=== PATIENT | male | born 1960 | race Caucasian/White ===

== ENCOUNTER 2019-01-07 17:18 | Emergency (ER) | payer MEDICAID ==
[2019-01-07 18:22] LABS: HEMOGLOBIN A1C 8.7 % (4.3-5.7)
[2019-01-07 18:34] LABS: CHLORIDE,CL 97 mmol/L (98-107); SODIUM,NA 132 mmol/L (136-145)
[2019-01-07] MEDS ORDERED: Sodium Chloride 0.9% 10 ML Syringe FLUSH PRN (18:37)
[2019-01-07] MEDS ORDERED: Furosemide 40 MG/4 ML VIAL IVPUSH ONE (18:38)
[2019-01-07] MEDS ORDERED: Albuterol/Ipratropium 3.0-0.5 MG/3 ML Neb Soln NEB ONE (18:39)
[2019-01-07] MEDS ORDERED: Bacitracin/Neomycin/Polymyxin B Oint 0.9 GM U/D Packet TOP ONE (19:20)
--- NOTE | 2019-01-07 19:23 | EDM.PDOC ---
ED HPI GENERAL MEDICAL PROBLEM - General Chief Complaint: Respiratory Problem Stated Complaint: shortness of breath Time Seen by Provider: 01/07/19 17:20 Source of Information: Reports: Patient, Family History Limitations: Reports: No Limitations - History of Present Illness INITIAL COMMENTS - FREE TEXT/NARRATIVE: Patient is a 58-year-old who was brought in by his with history of afibrillation not feeling his usual self no fever no coughing also stated afterwards that he had an infected left index finger. At this time patient was worked up history of atrial fibrillation diabetes type 2 Onset: Gradual Duration: Week(s): (2 weeks), Getting Worse Location: Reports: Chest (Shortness of breath retaining fluids) Severity: Moderate Improves with: Reports: None Worsens with: Reports: Rest Context: Reports: Other (Pneumonia) - Related Data Allergies Allergy/AdvReac Type Severity Reaction Status Date / Time No Known Allergies Allergy Verified 11/17/18 07:12 Home Meds: Home Meds Albuterol Sulfate [Proair Hfa] 8.5 gm IH DAILY 01/07/19 [History] Amoxicillin/Potassium Clav [Augmentin 875-125 Tablet] 1 each PO BID 10 Days #14 tablet 01/07/19 [Rx] Carvedilol 8 mg PO DAILY 01/07/19 [History] Carvedilol [Coreg] 6.25 mg PO DAILY 01/07/19 [History] Diltiazem HCl [Diltiazem ER] 240 mg PO DAILY 01/07/19 [History] Doxazosin Mesylate [Cardura] 8 mg PO DAILY 01/07/19 [History] Furosemide 40 mg PO BID 01/07/19 [History] Glimepiride [Amaryl] 6 mg PO DAILY 01/07/19 [History] Ipratropium/Albuterol Sulfate [Iprat-Albut 0.5-3(2.5) mg/3 ml] 3 ml IH ASDIRECTED 01/07/19 [History] Liraglutide [Victoza 3-Wero] 1.8 mg SUBCUT DAILY 01/07/19 [History] Omeprazole 20 mg PO DAILY 01/07/19 [History] Rivaroxaban [Xarelto] 20 mg pe PO DAILY 01/07/19 [History] Simvastatin [Zocor] 10 mg PO BEDTIME 01/07/19 [History] SitaGLIPtin [Januvia] 100 mg PO DAILY 01/07/19 [History] Spironolactone [Aldactone] 25 mg PO BID 01/07/19 [History] metFORMIN [Glucophage] 1,000 mg PO BIDMEALS 01/07/19 [History] Past Medical History Cardiovascular History: Reports: Afib, Hypertension, Syncope, Other (See Below) Other Cardiovascular History: cardioversion Respiratory History: Reports: None Musculoskeletal History: Reports: Back Pain, Chronic Psychiatric History: Reports: None Endocrine/Metabolic History: Reports: Diabetes, Type II, Obesity/BMI 30+ - Infectious Disease History Infectious Disease History: Reports: Chicken Pox, Measles, Mumps - Past Surgical History HEENT Surgical History: Reports: Other (See Below) Other HEENT Surgeries/Procedures: wisdom teeth extraction Cardiovascular Surgical History: Reports: None Respiratory Surgical History: Reports: None GI Surgical History: Reports: Colonoscopy Musculoskeletal Surgical History: Reports: None Social & Family History - Tobacco Use Smoking Status *Q: Never Smoker Second Hand Smoke Exposure: No - Caffeine Use Caffeine Use: Reports: Coffee, Soda - Recreational Drug Use Recreational Drug Use: No ED ROS GENERAL - Review of Systems Review Of Systems: See Below Constitutional: Reports: Weight Gain HEENT: Reports: No Symptoms Respiratory: Reports: Shortness of Breath Cardiovascular: Reports: Other (History of atrial fibrillation) Endocrine: Reports: No Symptoms GI/Abdominal: Reports: No Symptoms : Reports: No Symptoms Musculoskeletal: Reports: No Symptoms Skin: Reports: Bruising (Left index finger left great toe) Neurological: Reports: Other (Peripheral neuropathy) Psychiatric: Reports: No Symptoms ED EXAM, GENERAL - Physical Exam Exam: See Below Exam Limited By: No Limitations General Appearance: Alert, WD/WN, No Apparent Distress, Obese Ears: Normal External Exam, Normal Canal, Hearing Grossly Normal, Normal TMs Nose: Normal Inspection, Normal Mucosa, No Blood Throat/Mouth: Normal Inspection, Normal Lips, Normal Teeth, Normal Gums, Normal Oropharynx, Normal Voice, No Airway Compromise Head: Atraumatic, Normocephalic Neck: Normal Inspection, Supple, Non-Tender, Full Range of Motion Respiratory/Chest: Decreased Breath Sounds, Prolonged Expiration Cardiovascular: Irregularly Irregular GI/Abdominal: Normal Bowel Sounds, Soft, Non-Tender, No Organomegaly, No Distention, No Abnormal Bruit, No Mass (Male) Exam: Deferred Rectal (Males) Exam: Deferred Back Exam: Normal Inspection, Full Range of Motion, NT Neurological: Oriented, CN II-XII Intact, Normal Cognition, Other (Peripheral neuropathy lower extremities and upper extremities) Psychiatric: Normal Affect, Normal Mood Skin Exam: Other (Infected left index finger) Course - Vital Signs Last Recorded V/S: Last Vital Signs Temp 97.2 F 01/07/19 17:22 Pulse 89 01/07/19 17:22 Resp 22 H 01/07/19 17:43 BP 122/78 01/07/19 17:43 Pulse Ox 95 01/07/19 17:43 - Orders/Labs/Meds Orders: Active Orders 24 hr Category Date Time Status EKG Documentation Completion [RC] ASDIRECTED Care 01/07/19 17:27 Active RT Aerosol Therapy [RC] ASDIRECTED Care 01/07/19 18:39 Ordered Telemetry Monitoring [Cardiac Monitoring] [RC] . Care 01/07/19 18:11 Ordered DIRECTED Chest 2V [CR] Stat Exams 01/07/19 17:21 Taken Sodium Chloride 0.9% [Saline Flush] Med 01/07/19 18:37 Ordered 10 ml FLUSH ASDIRECTED PRN Saline Lock Insert [OM.PC] Stat Oth 01/07/19 18:38 Ordered EKG 12 Lead [EK] Stat Ther 01/07/19 17:27 Ordered Medication Orders Sodium Chloride (Saline Flush) 10 ml FLUSH ASDIRECTED PRN PRN Reason: Keep Vein Open Last Admin: 01/07/19 19:15 Dose: 10 ml Labs: Laboratory Tests 01/07/19 01/07/19 01/07/19 Range/Units 18:10 18:10 18:10 WBC 11.1 H (4.0-10.2) K/uL RBC 3.45 L (4.33-5.41) M/uL Hgb 10.3 L (13.1-16.8) g/dL Hct 33.1 L (39.0-49.0) % MCV 95.9 (84.0-98.0) fL MCH 29.9 (28.2-33.3) pg MCHC 31.1 L (31.7-36.0) g/dL RDW 13.0 (11.2-14.1) % Plt Count 181 (150-350) K/uL Neut % (Auto) 73.5 (45.0-80.0) % Lymph % (Auto) 12.0 (10.0-50.0) % [place] % (Auto) 11.8 (2.0-14.0) % Eos % (Auto) 2.4 (0.0-5.0) % Baso % (Auto) 0.3 (0.0-2.0) % Neut # (Auto) 8.18 H (1.40-7.00) K/uL Lymph # (Auto) 1.34 (0.50-3.50) K/uL [place] # (Auto) 1.31 H (0.00-1.00) K/uL Eos # (Auto) 0.27 (0.00-0.50) K/uL Baso # (Auto) 0.03 (0.00-0.20) K/uL D-Dimer, Quantitative (0-400) ng/mL Sodium 132 L (136-145) mmol/L Potassium 5.2 H (3.5-5.1) mmol/L Chloride 97 L (98-107) mmol/L Carbon Dioxide 29.0 (21.0-32.0) mmol/L BUN 29 H (7-18) mg/dL Creatinine 0.98 (0.51-1.17) mg/dL Est Cr Clr Drug Dosing TNP Estimated GFR (MDRD) > 60 mL/min Glucose 208 H (74-106) mg/dL Hemoglobin A1c (4.3-5.7) % Calcium 8.7 (8.5-10.1) mg/dL Total Bilirubin 0.8 (0.2-1.0) mg/dL AST 16 (15-37) U/L ALT 27 (12-78) U/L Alkaline Phosphatase 94 (46-116) IU/L NT-Pro-B Natriuret Pep 1552 H (0-125) pg/mL Total Protein 7.0 (6.4-8.2) g/dL Albumin 3.9 (3.4-5.0) g/dL 01/07/19 01/07/19 Range/Units 18:10 18:10 WBC (4.0-10.2) K/uL RBC (4.33-5.41) M/uL Hgb (13.1-16.8) g/dL Hct (39.0-49.0) % MCV (84.0-98.0) fL MCH (28.2-33.3) pg MCHC (31.7-36.0) g/dL RDW (11.2-14.1) % Plt Count (150-350) K/uL Neut % (Auto) (45.0-80.0) % Lymph % (Auto) (10.0-50.0) % [place] % (Auto) (2.0-14.0) % Eos % (Auto) (0.0-5.0) % Baso % (Auto) (0.0-2.0) % Neut # (Auto) (1.40-7.00) K/uL Lymph # (Auto) (0.50-3.50) K/uL [place] # (Auto) (0.00-1.00) K/uL Eos # (Auto) (0.00-0.50) K/uL Baso # (Auto) (0.00-0.20) K/uL D-Dimer, Quantitative 484 H (0-400) ng/mL Sodium (136-145) mmol/L Potassium (3.5-5.1) mmol/L Chloride (98-107) mmol/L Carbon Dioxide (21.0-32.0) mmol/L BUN (7-18) mg/dL Creatinine (0.51-1.17) mg/dL Est Cr Clr Drug Dosing Estimated GFR (MDRD) mL/min Glucose (74-106) mg/dL Hemoglobin A1c 8.7 H (4.3-5.7) % Calcium (8.5-10.1) mg/dL Total Bilirubin (0.2-1.0) mg/dL AST (15-37) U/L ALT (12-78) U/L Alkaline Phosphatase (46-116) IU/L NT-Pro-B Natriuret Pep (0-125) pg/mL Total Protein (6.4-8.2) g/dL Albumin (3.4-5.0) g/dL Meds: Medications Generic Name Dose Route Start Last Admin Trade Name Freq PRN Reason Stop Dose Admin Sodium Chloride 10 ml 01/07/19 18:37 01/07/19 19:15 Saline Flush FLUSH 10 ml ASDIRECTED PRN Administration Keep Vein Open Discontinued Medications Generic Name Dose Route Start Last Admin Trade Name Curly PRN Reason Stop Dose Admin Albuterol/Ipratropium 3 ml 01/07/19 18:39 01/07/19 18:57 Duoneb 3.0-0.5 Mg/3 Ml NEB 01/07/19 18:40 3 ml ONETIME ONE Administration Furosemide 40 mg 01/07/19 18:38 01/07/19 18:57 Lasix IVPUSH 01/07/19 18:39 40 mg NOW ONE Administration Departure - Departure Time of Disposition: 19:29 Disposition: Home, Self-Care 01 Condition: Poor Clinical Impression: Diabetes type 2, uncontrolled, Pneumonia, Peripheral neuropathy, Acute asthma - Discharge Information *PRESCRIPTION DRUG MONITORING PROGRAM REVIEWED*: No *COPY OF PRESCRIPTION DRUG MONITORING REPORT IN PATIENT SHALINI: No Care Plan Goals: Patient will be treated for pneumonia with Augmentin 875 twice a day for 10 days follow-up with primary patient's hemoglobin A1c elevated to 8.7 in spite of multiple attempts at controlling the sugars at this point I feel that he should be started on insulin for better control since patient has infected finger and pneumonia I think his sugars would benefit from insulin at this time follow-up with primary for diabetic care neck's week return to the ER if any acute symptoms develop. We should consider sleep apnea study on this gentleman secondary to hypoxia - My Orders Last 24 Hours: My Active Orders 01/07/19 17:21 Chest 2V [CR] Stat 01/07/19 17:27 EKG Documentation Completion [RC] ASDIRECTED EKG 12 Lead [EK] Stat 01/07/19 18:11 Telemetry Monitoring [Cardiac Monitoring] [RC] . DIRECTED 01/07/19 18:37 Sodium Chloride 0.9% [Saline Flush] 10 ml FLUSH ASDIRECTED PRN 01/07/19 18:38 Saline Lock Insert [OM.PC] Stat 01/07/19 18:39 RT Aerosol Therapy [RC] ASDIRECTED - Assessment/Plan Last 24 Hours: My Active Orders 01/07/19 17:21 Chest 2V [CR] Stat 01/07/19 17:27 EKG Documentation Completion [RC] ASDIRECTED EKG 12 Lead [EK] Stat 01/07/19 18:11 Telemetry Monitoring [Cardiac Monitoring] [RC] . DIRECTED 01/07/19 18:37 Sodium Chloride 0.9% [Saline Flush] 10 ml FLUSH ASDIRECTED PRN 01/07/19 18:38 Saline Lock Insert [OM.PC] Stat 01/07/19 18:39 RT Aerosol Therapy [RC] ASDIRECTED
== END 2019-01-07 20:10 | disposition home or self-care (01) ==
LOC: LL.ED 17:18
DX: J18.9 Pneumonia, unspecified organism (principal); J45.901 Unspecified asthma with (acute) exacerbation; E11.40 Type 2 diabetes mellitus with diabetic neuropathy, unspecified; I48.91 Unspecified atrial fibrillation; I10 Essential (primary) hypertension; Z79.4 Long term (current) use of insulin; Z79.899 Other long term (current) drug therapy
CPT/HCPCS: 36415; 71046; 80053; 83036; 83880; 85025; 85379; 93005; 94640; 96374; 99285-25; J1940; J7620-GY

== ENCOUNTER 2019-03-06 20:15 | Emergency (ER) | payer MEDICAID ==
[2019-03-06] MEDS ORDERED: Sodium Chloride 0.9% 10 ML Syringe FLUSH PRN (20:24)
[2019-03-06] MEDS ORDERED: Famotidine 20 MG/2 ML SDV IVPUSH ONE (20:24)
--- NOTE | 2019-03-06 20:24 | EDM.PDOC ---
ED HPI GENERAL MEDICAL PROBLEM - General Chief Complaint: Syncope Stated Complaint: syncope, possible seizure Time Seen by Provider: 03/06/19 20:15 Source of Information: Reports: Patient, Family (), Old Records ([facility] EMR. No paper hospital chart available.) History Limitations: Reports: No Limitations - History of Present Illness INITIAL COMMENTS - FREE TEXT/NARRATIVE: The patient was brought to the emergency room via private automobile by his for evaluation of a true syncopal episode versus possible petit mal seizure , which occurred at home at about 19:00 hours. His witnessed the event with some possible borderline clonic activity in right upper gaze and some postictal confusion without sedation after the above episode. No history of urinary or stool incontinence. His symptoms lasted for about 2 minutes. They did check his Accu-Chek immediately with onset of this above symptoms with Accu- Chek of 143 mg percent at that time. By their history the patient has had dizziness with near syncopal episodes about 3-5 times per week during the last 1 -2 months, which has been blamed on his medications by his previous providers. No workup to this point. No history of recent headaches, visual changes, diplopia, change in mental status, or other change in neurological status. The patient denies any chest pain/pressure, heart flutter, dizziness, orthostasis, orthopnea, diaphoresis, paresthesias, recent decreased exercise tolerance, or any other anginal-type symptoms. No recent history of abdominal pain, heartburn , nausea, melena, gross hematochezia, or any food intolerance, including fatty foods, etc. with patient having 4-6 loose bowel movements per day during the last couple of days. No recent history of gross hematuria, colic, UTI symptoms. The patient also denies any recent fever, cough, wheezing, dyspnea, etc.. He did run out of his diltiazem during the last 3 days. He denies any specific pain or discomfort. Onset: Today, Sudden, Gradual Onset Date: 03/06/19 Onset Time: 19:00 Location: Reports: Other (No pain as above) Improves with: Reports: None Worsens with: Reports: None Context: Reports: Other (As above). Denies: Sick Contact, Trauma Associated Symptoms: Reports: Confusion, Seizure, Syncope. Denies: Chest Pain, Cough, Diaphoresis, Fever/Chills, Headaches, Loss of Appetite, Malaise, Nausea/ Vomiting, Rash, Shortness of Breath, Weakness Treatments DIRECT MARKETING EXECUTIVE: Reports: Other (see below) (None) - Related Data Allergies Allergy/AdvReac Type Severity Reaction Status Date / Time No Known Allergies Allergy Verified 11/17/18 07:12 Home Meds: Home Meds Albuterol Sulfate [Proair Hfa] 8.5 gm IH DAILY 01/07/19 [History] Carvedilol [Coreg] 6.25 mg PO DAILY 01/07/19 [History] Doxazosin Mesylate [Cardura] 8 mg PO DAILY 01/07/19 [History] Furosemide 40 mg PO BID 01/07/19 [History] Glimepiride [Amaryl] 6 mg PO DAILY 01/07/19 [History] Ipratropium/Albuterol Sulfate [Iprat-Albut 0.5-3(2.5) mg/3 ml] 3 ml IH ASDIRECTED 01/07/19 [History] Liraglutide [Victoza 3-Wero] 1.8 mg SUBCUT DAILY 01/07/19 [History] Omeprazole 20 mg PO DAILY 01/07/19 [History] Rivaroxaban [Xarelto] 20 mg pe PO DAILY 01/07/19 [History] Simvastatin [Zocor] 10 mg PO BEDTIME 01/07/19 [History] Spironolactone [Aldactone] 25 mg PO BID 01/07/19 [History] dilTIAZem HCl [Diltiazem ER] 240 mg PO DAILY 01/07/19 [History] metFORMIN [Glucophage] 1,000 mg PO BIDMEALS 01/07/19 [History] Acetaminophen [Tylenol] 650 mg PO 0800 PRN 03/06/19 [History] Ascorbic Acid [Vitamin C] 1,000 mg PO DAILY 03/06/19 [History] Insulin Glargine,Hum.Rec.Anlog [Kailash Solian] 20 unit SQ DAILY@1900 03/06/19 [History] metOLazone [Metolazone] 2.5 mg PO DAILY PRN 03/06/19 [History] Past Medical History HEENT History: Reports: Impaired Vision, Other (See Below). Denies: Allergic Rhinitis, Cataract, Glaucoma, Hard of Hearing, Macular Degeneration, Otitis Media, Retinal Detachment Other HEENT History: He wears OTC reading glasses. No diabetic retinopathy to this point. Cardiovascular History: Reports: Afib, Arrhythmia, Cardiomyopathy, High Cholesterol, Hypertension, Syncope, Other (See Below). Denies: Aneurysm, Blood Clots/VTE/DVT, Bypass, CAD, Heart Failure, Heart Murmur, NE, PTCA, PVD, Stents Other Cardiovascular History: Unsuccessful cardioversion atrial fibrillation 2 initially in 2014 and then again 2017. Dependent edema with no known previous history of CHF. Recurrent Syncope and near-syncope with no previous workup. PVCs. Moderate cardiomegaly with left atrial enlargement by echocardiogram. Respiratory History: Reports: Bronchitis, Recurrent, COPD, Intubation, Previous. Denies: Intubation, Difficult, PE, Pneumonia, Recurrent, Pneumothorax , Sleep Apnea Gastrointestinal History: Reports: Colon Polyp, GERD, Other (See Below). Denies : Celiac Disease, Cholelithiasis, Chronic Constipation, Chronic Diarrhea, Fecal Incontinence, GI Bleed, Hepatitis, Inflammatory Bowel Disease, Irritable Bowel Syndrome, Jaundice, Pancreatitis, PUD Other Gastrointestinal History: Multiple colonic polyps in about 2014. Genitourinary History: Reports: BPH. Denies: Acute Renal Failure, Chronic Renal Insuffiency, Diabetic Nephropathy, Prostate Disorder, Renal Calculus, STD , Urinary Incontinence, UTI, Recurrent Musculoskeletal History: Reports: Arthritis, Back Pain, Chronic, Osteoarthritis. Denies: Amputation, Fracture, Gout, Neck Pain, Chronic, RA, SLE Other Musculoskeletal History: Degenerative disc disease with chronic low back pain and epidural steroid injections 3 in 2019 with last procedure on 02/01/19 Neurological History: Reports: Neuropathy, Diabetic, Neuropathy, Peripheral. Denies: Cerebral Aneurysms, Concussion, CVA, Headaches, Chronic, Head Trauma, Migraines, MS, Parkinson's, Seizure, TIA, Vertigo Psychiatric History: Reports: None. Denies: Abuse, Victim of, ADD, ADHD, Addiction, Anxiety, Depression, Psych Hospitalization(s), PTSD, Suicide Attempt , Suicidal Ideation Endocrine/Metabolic History: Reports: Diabetes, Type II, IDDM, Obesity/BMI 30+. Denies: Diabetes Mellitus, Type 3c, Hypothyroidism Hematologic History: Denies: Anemia, B12 Deficiency, Blood Transfusion(s), Iron Deficiency Immunologic History: Reports: None. Denies: AIDS, HIV, SLE Oncologic (Cancer) History: Denies: Basal Cell Carcinoma, Colon, Hodgkin's Lymphoma, Leukemia, Lymphoma, Malignant Melanoma, Non-Hodgkin's Lymphoma, Prostate, Squamous Cell Carcinoma Dermatologic History: Denies: Eczema, Psoriasis - Infectious Disease History Infectious Disease History: Reports: Chicken Pox, Measles, Mumps. Denies: C- Difficile, Meningitis, Mononucleosis, MRSA, Pertussis (Whooping Cough), Rubella , Scarlet Fever, Shingles, TB, VRE - Past Surgical History Head Surgeries/Procedures: Reports: None HEENT Surgical History: Reports: Oral Surgery, Other (See Below). Denies: Adenoidectomy, Cataract Surgery, Detached Retina, Eye Surgery, Laser Surgery, LASIK, Myringotomy w Tube(s), Naso-Sinus Surgery, Tonsillectomy Other HEENT Surgeries/Procedures: [place] teeth extraction 2 with additional multiple teeth extractions Cardiovascular Surgical History: Reports: None. Denies: Varicose Respiratory Surgical History: Reports: None. Denies: Thoracentesis GI Surgical History: Reports: Colonoscopy, Polypectomy, Other (See Below). Denies: Appendectomy, Cholecystectomy, EGD, Hernia, Abdominal, Hernia, Inguinal , Hernia Repair/Other Other GI Surgeries/Procedures: Colonoscopy in about 2014 with multiple polypectomies. Male Surgical History: Reports: Circumcision. Denies: TURP-Transurethral Resection of Prostate, Vasectomy Endocrine Surgical History: Reports: None. Denies: Thyroid Biopsy Neurological Surgical History: Reports: None. Denies: C-Spine, Discectomy, Laminectomy, Lumbar Spine, Sacral Spine, Scoliosis, Spinal Fusion, Thoracic Spine, Vertebroplasty Musculoskeletal Surgical History: Reports: None. Denies: Arthroscopic Procedure , Carpal Tunnel, Ganglion Cyst, Joint Replacement, Knee Replacement, ORIF, Shoulder Surgery Oncologic Surgical History: Reports: None Dermatological Surgical History: Reports: None - Past Imaging History Past Imaging History: Reports: Cardiac Echo (09/05/18 suboptimal with no ejection fraction calculated.), MRI (MRI of the lumbar spine on 11/14/18.), Stress Testing (Negative possible adenosine Cardiolite stress test in about 2014.) Social & Family History - Tobacco Use Smoking Status *Q: Never Smoker Used Tobacco, but Quit: No Smoking Cessation Information Provided To Patient: No Second Hand Smoke Exposure: Yes Source of Second Hand Smoke Exposure: Smokes. Second Hand Smoke Education Provided: Yes - Caffeine Use Caffeine Use: Reports: Coffee, Soda - Alcohol Use Alcohol Use History: Yes Days Per Week of Alcohol Use: 0 Number of Drinks Per Day: 3 Number of Drinks Per Day Comment: Usually about once per month. No previous DWIs , problems with alcohol abuse, etc. Total Drinks Per Week: 0 Alcohol Use in Last Twelve Months: Yes Alcohol Use Frequency: Monthly - Recreational Drug Use Recreational Drug Use: No Drug Use in Last 12 Months: No Recreational Drug Type: Denies: Amphetamines (Speed), Cocaine, Heroin, Inhalants (Glues, Solvents, Aerosols), LSD (Acid), Marijuana/Hashish, Morphine, Oxycodone - Living Situation & Occupation Living situation: Reports: (2008. 3 step children), with Family () Occupation: Unemployed (Previous construction and maintenance inspector) ED ROS GENERAL - Review of Systems Review Of Systems: ROS reveals no pertinent complaints other than HPI. ED EXAM, GENERAL - Physical Exam Exam: See Below Exam Limited By: No Limitations General Appearance: Alert, WD/WN, No Apparent Distress Eye Exam: Bilateral Eye: EOMI, Normal Fundi, Normal Inspection (No nystagmus), PERRL Ears: Normal External Exam, Normal Canal, Hearing Grossly Normal, Normal TMs Nose: Normal Inspection, Normal Mucosa, No Blood Throat/Mouth: Normal Lips, Normal Gums, Normal Oropharynx, Normal Voice, No Airway Compromise. No: Normal Inspection, Normal Teeth (Multiple missing teeth especially uppers with no acute caries or dentures), Dysphagia, Perioral Cyanosis Head: Atraumatic, Normocephalic. No: Facial Swelling, Facial Tenderness, Sinus Tenderness Neck: Normal Inspection, Supple, Non-Tender, Full Range of Motion, Other ( Negative meningeal signs). No: Carotid Bruit, Lymphadenopathy (L), Lymphadenopathy (R), Thyromegaly Respiratory/Chest: No Respiratory Distress, No Accessory Muscle Use, Chest Non- Tender, Rales (Bilateral basilar ralesmild). No: Rhonchi, Wheezing, Pleural Rub, Retractions Cardiovascular: Normal Peripheral Pulses, No Gallop, No JVD, No Murmur, No Rub, Irregularly Irregular. No: No Edema (Dependent edema as below), Gallop/S3, Gallop/S4, Extra Beats, Friction Rub Peripheral Pulses: 2+: Radial (L), Radial (R), Dorsalis Pedis (L), Dorsalis Pedis (R) GI/Abdominal: Normal Bowel Sounds, Soft, Non-Tender, No Organomegaly, No Distention, No Abnormal Bruit, No Mass, Pelvis Stable, Other (Obese). No: Guarding (Male) Exam: Deferred Rectal (Males) Exam: Deferred Back Exam: Normal Inspection, Full Range of Motion. No: CVA Tenderness (L), CVA Tenderness (R), Muscle Spasm Extremities: Normal Range of Motion, Non-Tender, Pedal Edema (Trace to +1 bilateral pedal/pretibial edema), Other (1 cm superficial laceration over the right patellaold with no local signs of infection. Multiple abrasions in the anterior tibial regions also hold. Old superficial puncture wounds over the mid plantar surface of his right foot all with no local signs of infection.). No: No Pedal Edema, Jonatan's Sign, Redness Neurological: Alert, Oriented, CN II-XII Intact, Normal Cognition, Normal Gait, Normal Reflexes (Negative Babinski's, finger to nose, and pronator rotation tests. No evidence of facial paresis, tongue deviation, orthostasis, etc.. Excellent reverse thought processes.), No Motor/Sensory Deficits Psychiatric: Normal Affect, Normal Mood Skin Exam: Warm, Dry, Normal Color, No Rash, Wound/Incision (As above). No: Diaphoretic Lymphatic: No Adenopathy EKG INTERPRETATION EKG Date: 03/06/19 Time: 20:34 Rhythm: A-Fib (With occasional PVCs) Rate (Beats/Min): 82 [place]: LAD-Left Lake Deviation (Extended left cardiac axis) P-Wave: Variable QRS: Wide (Interval of 0.10 seconds representing repolarization changes.) ST-T: Normal (Borderline T-wave inversion in lead V1) OR/PQ Interval: Variable, however extreme poor R-wave progression in the anterior leads Comparison: Change From Previous EKG (PVCs since last EKG on 01/07/19.) EKG Interpretation Comments: 1. No acute ischemic changes 2. PVCs 3. Repolarization changes Course - Vital Signs Last Recorded V/S: Last Vital Signs Temp 37.2 C 03/06/19 20:24 Pulse 85 03/07/19 00:18 Resp 20 03/07/19 00:18 BP 132/93 H 03/07/19 00:18 Pulse Ox 95 03/07/19 00:18 Vital Signs - 24 hr 03/06/19 03/06/19 03/06/19 20:18 20:24 20:33 Temperature [ 37.2 C Oral] Pulse, 79 79 Peripheral [ Left Pulse Oximetry] Respiratory 17 16 Rate Blood Pressure 145/89 H 121/80 [Right Upper Arm] O2 Sat by Pulse 96 97 Oximetry 03/06/19 03/06/19 03/06/19 20:48 22:00 22:40 Temperature [ Oral] Pulse, 85 86 84 Peripheral [ Left Pulse Oximetry] Respiratory 20 16 16 Rate Blood Pressure 137/92 H 129/95 H 149/91 H [Right Upper Arm] O2 Sat by Pulse 97 94 L Oximetry 03/06/19 03/06/19 03/06/19 23:00 23:18 23:34 Temperature [ Oral] Pulse, 87 90 80 Peripheral [ Left Pulse Oximetry] Respiratory 16 16 16 Rate Blood Pressure 124/77 146/95 H 124/81 [Right Upper Arm] O2 Sat by Pulse 89 L 96 96 Oximetry 03/06/19 03/07/19 03/07/19 23:48 00:03 00:18 Temperature [ Oral] Pulse, 82 85 85 Peripheral [ Left Pulse Oximetry] Respiratory 16 16 20 Rate Blood Pressure 124/85 123/92 H 132/93 H [Right Upper Arm] O2 Sat by Pulse 96 95 Oximetry - Orders/Labs/Meds Orders: Active Orders 24 hr Category Date Time Status Cardiac Monitoring [RC] . DIRECTED Care 03/06/19 20:24 Active EKG Documentation Completion [RC] ASDIRECTED Care 03/06/19 20:24 Active Oxygen Therapy, ED [RC] CONTINUOUS Care 03/06/19 20:24 Active Peripheral IV Care [RC] . DIRECTED Care 03/06/19 20:24 Active Pulse Oximetry [RC] PRN Care 03/06/19 20:24 Active Up With Assistance [RC] PFP Care 03/06/19 20:24 Active Vital Signs [RC] PFP Care 03/06/19 20:24 Active Nothing per Oral Now Diet [DIET] Diet 03/06/19 Breakfast Active Chest 1V Frontal [CR] Stat Exams 03/06/19 20:24 Taken Head wo Cont [CT] Stat Exams 03/06/19 20:27 Taken PROLACTIN [REF] Stat Lab 03/06/19 20:35 Received Sodium Chloride 0.9% [Saline Flush] Med 03/06/19 20:24 Active 10 ml FLUSH ASDIRECTED PRN Obtain Past Medical Record [OM.PC] Urgent Oth 03/06/19 20:24 Active Peripheral IV Insertion Adult [OM.PC] Stat Oth 03/06/19 20:24 Ordered Resuscitation Status Stat Resus Stat 03/06/19 20:24 Ordered Medication Orders Sodium Chloride (Saline Flush) 10 ml FLUSH ASDIRECTED PRN PRN Reason: Keep Vein Open Last Admin: 03/06/19 20:49 Dose: 10 ml Labs: Laboratory Tests 03/06/19 03/06/19 03/06/19 Range/Units 20:35 20:35 20:35 WBC 11.7 H (4.0-10.2) K/uL RBC 4.10 L (4.33-5.41) M/uL Hgb 11.3 L (13.1-16.8) g/dL Hct 36.2 L (39.0-49.0) % MCV 88.3 D (84.0-98.0) fL MCH 27.6 L (28.2-33.3) pg MCHC 31.2 L (31.7-36.0) g/dL RDW 13.9 (11.2-14.1) % Plt Count 314 D (150-350) K/uL Neut % (Auto) 73.0 (45.0-80.0) % Lymph % (Auto) 15.3 (10.0-50.0) % [place] % (Auto) 8.7 (2.0-14.0) % Eos % (Auto) 2.6 (0.0-5.0) % Baso % (Auto) 0.4 (0.0-2.0) % Neut # (Auto) 8.52 H (1.40-7.00) K/uL Lymph # (Auto) 1.79 (0.50-3.50) K/uL [place] # (Auto) 1.02 H (0.00-1.00) K/uL Eos # (Auto) 0.30 (0.00-0.50) K/uL Baso # (Auto) 0.05 (0.00-0.20) K/uL PT 12.7 H (9.5-12.0) SEC INR 1.2 APTT 34.6 H (21.0-31.3) SEC D-Dimer, Quantitative 155 (0-400) ng/mL Sodium (136-145) mmol/L Potassium (3.5-5.1) mmol/L Chloride (98-107) mmol/L Carbon Dioxide (21.0-32.0) mmol/L BUN (7-18) mg/dL Creatinine (0.51-1.17) mg/dL Est Cr Clr Drug Dosing mL/min Estimated GFR (MDRD) mL/min Glucose (74-106) mg/dL Lactic Acid (0.4-2.0) mmol/L Uric Acid (2.6-7.2) mg/dL Calcium (8.5-10.1) mg/dL Magnesium (1.8-2.4) mg/dL Total Bilirubin (0.2-1.0) mg/dL AST (15-37) U/L ALT (12-78) U/L Alkaline Phosphatase (46-116) IU/L Creatine Kinase (26-308) U/L Creatine Kinase Index (0.0-2.5) % CK-MB (CK-2) (0.00-3.60) ng/mL Troponin I (0.000-0.056) ng/mL NT-Pro-B Natriuret Pep (0-125) pg/mL Total Protein (6.4-8.2) g/dL Albumin (3.4-5.0) g/dL TSH, Ultra Sensitive (0.358-3.740) mIU/mL 03/06/19 03/06/19 Range/Units 20:35 20:35 WBC (4.0-10.2) K/uL RBC (4.33-5.41) M/uL Hgb (13.1-16.8) g/dL Hct (39.0-49.0) % MCV (84.0-98.0) fL MCH (28.2-33.3) pg MCHC (31.7-36.0) g/dL RDW (11.2-14.1) % Plt Count (150-350) K/uL Neut % (Auto) (45.0-80.0) % Lymph % (Auto) (10.0-50.0) % [place] % (Auto) (2.0-14.0) % Eos % (Auto) (0.0-5.0) % Baso % (Auto) (0.0-2.0) % Neut # (Auto) (1.40-7.00) K/uL Lymph # (Auto) (0.50-3.50) K/uL [place] # (Auto) (0.00-1.00) K/uL Eos # (Auto) (0.00-0.50) K/uL Baso # (Auto) (0.00-0.20) K/uL PT (9.5-12.0) SEC INR APTT (21.0-31.3) SEC D-Dimer, Quantitative (0-400) ng/mL Sodium 137 (136-145) mmol/L Potassium 4.2 (3.5-5.1) mmol/L Chloride 98 (98-107) mmol/L Carbon Dioxide 29.5 (21.0-32.0) mmol/L BUN 22 H (7-18) mg/dL Creatinine 0.99 (0.51-1.17) mg/dL Est Cr Clr Drug Dosing 86.62 mL/min Estimated GFR (MDRD) > 60 mL/min Glucose 148 H (74-106) mg/dL Lactic Acid 0.8 (0.4-2.0) mmol/L Uric Acid 7.9 H (2.6-7.2) mg/dL Calcium 9.3 (8.5-10.1) mg/dL Magnesium 1.4 L (1.8-2.4) mg/dL Total Bilirubin 0.3 (0.2-1.0) mg/dL AST 17 (15-37) U/L ALT 21 (12-78) U/L Alkaline Phosphatase 101 (46-116) IU/L Creatine Kinase 33 (26-308) U/L Creatine Kinase Index 5.8 H (0.0-2.5) % CK-MB (CK-2) 1.90 (0.00-3.60) ng/mL Troponin I 0.033 (0.000-0.056) ng/mL NT-Pro-B Natriuret Pep 1758 H (0-125) pg/mL Total Protein 8.0 (6.4-8.2) g/dL Albumin 3.7 (3.4-5.0) g/dL TSH, Ultra Sensitive 1.798 (0.358-3.740) mIU/mL Meds: Medications Generic Name Dose Route Start Last Admin Trade Name Freq PRN Reason Stop Dose Admin Sodium Chloride 10 ml 03/06/19 20:24 03/06/19 20:49 Saline Flush FLUSH 10 ml ASDIRECTED PRN Administration Keep Vein Open Discontinued Medications Generic Name Dose Route Start Last Admin Trade Name Freq PRN Reason Stop Dose Admin Famotidine 40 mg 03/06/19 20:24 03/06/19 20:49 Pepcid IVPUSH 03/06/19 20:25 40 mg ONETIME ONE Administration Furosemide 60 mg 03/06/19 22:29 03/06/19 22:49 Lasix IVPUSH 03/06/19 22:30 60 mg NOW ONE Administration Magnesium Sulfate 4 gm/ Premix 100 mls @ 100 mls/hr 03/06/19 22:30 03/06/19 22:48 IV 03/06/19 23:29 100 mls/hr ONETIME ONE Administration - Radiology Interpretation Free Text/Narrative:: residential monitor shows atrial fibrillation with heart rate in the 80s to 90s with only very occasional PVCs with no other ectopy or arrhythmia. Chest x-ray, portable, shows evidence of acute severe cardiomegaly with mild to moderate centralized CHF and additional moderate COPD changes. Somewhat poor inspiratory film with elevated right hemidiaphragm. No pulmonary infiltrates, pneumothorax, etc. CT of the head without contrast report shows no evidence of acute CVA, cerebral hemorrhages, etc. Note that requested preliminary telephone verbal report from the radiologist has not received. Departure - Departure Time of Disposition: 00:35 Disposition: DC/Tfer to Acute Hospital 02 Condition: Good Clinical Impression: IDDM (insulin dependent diabetes mellitus), Hypomagnesemia, Seizure, Peptic reflux disease, Hyperuricemia Hypertension Qualifiers: Hypertension type: essential hypertension Qualified Code(s): I10 - Essential ( primary) hypertension Hyperlipidemia Qualifiers: Hyperlipidemia type: unspecified Qualified Code(s): E78.5 - Hyperlipidemia, unspecified Atrial fibrillation Qualifiers: Atrial fibrillation type: chronic Qualified Code(s): I48.2 - Chronic atrial fibrillation CHF (congestive heart failure) Qualifiers: Heart failure type: unspecified Heart failure chronicity: acute Qualified Code( s): I50.9 - Heart failure, unspecified Anemia Qualifiers: Anemia type: other cause Other causes of anemia: other cause, not classified Qualified Code(s): D64.89 - Other specified anemias COPD (chronic obstructive pulmonary disease) Qualifiers: COPD type: emphysema Emphysema type: panlobular Qualified Code(s): J43.1 - Panlobular emphysema - Discharge Information Referrals: PCP,None [Primary Care Provider] - Forms: ED Department Discharge, Interfacility Transfer EMTALA - Problem List & Annotations (1) Seizure SNOMED Code(s): 51246237 Code(s): R56.9 - UNSPECIFIED CONVULSIONS Status: Acute Priority: High Current Visit: Yes Onset Date: 03/06/19 Annotation/Comment:: Dictated petit mal seizure with possible mild clonic component based on history as above. Note recurrent near syncopal episodes, etc. during the last 12 months. Initial telephone consultation with [facility] in [place] at 21:55 hours with subsequent telephone consultation both with Dr. Corey, hospitalist, and Dr. Thibodeaux, neurologist, at 22:05 hours with both providers accepting the patient for further workup and evaluation. MRI of the brain is planned. No other further treatment recommendations given other than magnesium sulfate IV supplementation as above/below. Ambulance transfer to [place] with bradder accompaniment, however some delay in patient transfer without sequelae secondary to ambulance availability. (2) CHF (congestive heart failure) SNOMED Code(s): 59726612 Code(s): I50.9 - HEART FAILURE, UNSPECIFIED Status: Acute Priority: High Current Visit: Yes Onset Date: 03/06/19 Annotation/Comment:: Mild centralized CHF by chest x-ray with moderate BNP elevation. No chest pain or anginal type symptoms with chest pain protocol not initiated in the emergency room. Patient is on Xarelto. IV Lasix therapy started in the emergency room. Further cardiology consultation and/are workup indicated secondary to his above symptoms and multiple cardiac risk factors. Possible Syncopal episode as above. Mild change in troponin, which is still normal, with artifactually elevated CK index secondary to low baseline CK. No ischemic EKG changes. Qualifiers: Heart failure type: unspecified Heart failure chronicity: acute Qualified Code(s): I50.9 - Heart failure, unspecified (3) Atrial fibrillation SNOMED Code(s): 03851122 Code(s): I48.91 - UNSPECIFIED ATRIAL FIBRILLATION Status: Chronic Priority: Medium Current Visit: Yes Annotation/Comment:: Patient currently on Xarelto. Additional history of PVCs. Qualifiers: Atrial fibrillation type: chronic Qualified Code(s): I48.2 - Chronic atrial fibrillation (4) COPD (chronic obstructive pulmonary disease) SNOMED Code(s): 97063410 Code(s): J44.9 - CHRONIC OBSTRUCTIVE PULMONARY DISEASE, UNSPECIFIED Status : Chronic Priority: Medium Current Visit: Yes Annotation/Comment:: No recent fever or bronchitic type symptoms. Consider PFTs. Mild leukocytosis likely secondary to stress reaction from suspected seizure. Qualifiers: COPD type: emphysema Emphysema type: panlobular Qualified Code(s): J43.1 - Panlobular emphysema (5) Hyperlipidemia SNOMED Code(s): 74077621 Code(s): E78.5 - HYPERLIPIDEMIA, UNSPECIFIED Status: Chronic Priority: Medium Current Visit: Yes Annotation/Comment:: Currently under therapy. Qualifiers: Hyperlipidemia type: unspecified Qualified Code(s): E78.5 - Hyperlipidemia , unspecified (6) Hypertension SNOMED Code(s): 41363327 Code(s): I10 - ESSENTIAL (PRIMARY) HYPERTENSION Status: Chronic Priority : Medium Current Visit: Yes Annotation/Comment:: Blood pressures under good control in the emergency room despite patient missing his diltiazem during the last 3 days. Continue to observe closely. Qualifiers: Hypertension type: essential hypertension Qualified Code(s): I10 - Essential (primary) hypertension (7) Hypomagnesemia SNOMED Code(s): 727975465 Code(s): E83.42 - HYPOMAGNESEMIA Status: Acute Priority: High Current Visit: Yes Onset Date: 03/06/19 Annotation/Comment:: IV magnesium sulfate infusion given in the emergency room as above. 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 Home Accu-Cheks have been averaging in the 150s this past week with [id number] prior to that. Note initiation of insulin therapy in December 2018. Additional history of diabetic neuropathy. (9) Anemia SNOMED Code(s): 415647000 Code(s): D64.9 - ANEMIA, UNSPECIFIED Status: Acute Current Visit: Yes Onset Date: 03/06/19 Annotation/Comment:: Mild anemia with no evidence of GI bleed, etc. Qualifiers: Anemia type: other cause Other causes of anemia: other cause, not classified Qualified Code(s): D64.89 - Other specified anemias (10) Peptic reflux disease SNOMED Code(s): 006265569 Code(s): K21.9 - GASTRO-ESOPHAGEAL REFLUX DISEASE WITHOUT ESOPHAGITIS Status: Chronic Priority: Medium Current Visit: Yes Annotation/Comment:: High-dose IV Pepcid given in the emergency room. No recent significant symptoms. (11) Hyperuricemia SNOMED Code(s): 81700351 Code(s): E79.0 - HYPERURICEMIA W/O SIGNS OF INFLAM ARTHRIT AND TOPHACEOUS DIS Status: Chronic Priority: High Current Visit: Yes Onset Date: Annotation/Comment:: No history of gout attacks. Newly diagnosed. Note arthritis with chronic low back pain as above. - Problem List Review Problem List Initiated/Reviewed/Updated: Yes - My Orders Last 24 Hours: My Active Orders 03/06/19 20:24 Cardiac Monitoring [RC] . DIRECTED EKG Documentation Completion [RC] ASDIRECTED Oxygen Therapy, ED [RC] CONTINUOUS Peripheral IV Care [RC] . DIRECTED Pulse Oximetry [RC] PRN Up With Assistance [RC] PFP Vital Signs [RC] PFP Chest 1V Frontal [CR] Stat Sodium Chloride 0.9% [Saline Flush] 10 ml FLUSH ASDIRECTED PRN Obtain Past Medical Record [OM.PC] Urgent Peripheral IV Insertion Adult [OM.PC] Stat Resuscitation Status Stat 03/06/19 20:27 Head wo Cont [CT] Stat 03/06/19 20:35 PROLACTIN [REF] Stat 03/06/19 Breakfast Nothing per Oral Now Diet [DIET] - Assessment/Plan Last 24 Hours: My Active Orders 03/06/19 20:24 Cardiac Monitoring [RC] . DIRECTED EKG Documentation Completion [RC] ASDIRECTED Oxygen Therapy, ED [RC] CONTINUOUS Peripheral IV Care [RC] . DIRECTED Pulse Oximetry [RC] PRN Up With Assistance [RC] PFP Vital Signs [RC] PFP Chest 1V Frontal [CR] Stat Sodium Chloride 0.9% [Saline Flush] 10 ml FLUSH ASDIRECTED PRN Obtain Past Medical Record [OM.PC] Urgent Peripheral IV Insertion Adult [OM.PC] Stat Resuscitation Status Stat 03/06/19 20:27 Head wo Cont [CT] Stat 03/06/19 20:35 PROLACTIN [REF] Stat 03/06/19 Breakfast Nothing per Oral Now Diet [DIET] Assessment:: As above Plan: As above. Extensive precautions were given to the patient and his , who are in agreement with the treatment plan. Ambulance transfer to [place] with bradder accompaniment.
[2019-03-06 21:12] LABS: CHLORIDE,CL 98 mmol/L (98-107); SODIUM,NA 137 mmol/L (136-145)
[2019-03-06] MEDS ORDERED: Furosemide 40 MG/4 ML VIAL IVPUSH ONE (22:29)
[2019-03-06] MEDS ORDERED: Magnesium Sulfate/Water 4 GM in Premix Bag 1 BAG IV ONE (22:30)
== END 2019-03-07 00:37 ==
LOC: LL.ED 20:15
DX: R56.9 Unspecified convulsions (principal); I11.0 Hypertensive heart disease with heart failure; I50.9 Heart failure, unspecified; E83.42 Hypomagnesemia; K21.9 Gastro-esophageal reflux disease without esophagitis; E79.0 Hyperuricemia without signs of inflammatory arthritis and tophaceous disease; E11.9 Type 2 diabetes mellitus without complications; S81.011A Laceration without foreign body, right knee, initial encounter; D64.89 Other specified anemias; J43.1 Panlobular emphysema; I48.2 Chronic atrial fibrillation; E78.5 Hyperlipidemia, unspecified; Z79.4 Long term (current) use of insulin; Z79.899 Other long term (current) drug therapy; S80.819A Abrasion, unspecified lower leg, initial encounter; X58.XXXA Exposure to other specified factors, initial encounter
CPT/HCPCS: 36415; 70450; 71045; 80053; 82550; 82553; 83605; 83735; 83880; 84146; 84443; 84484; 84550; 85025; 85379; 85610; 85730; 93005; 96374; 96375; 99285-25; A4217; J1940; J3475; J3490

== ENCOUNTER 2019-05-01 14:57 | Inpatient (IN) | payer MEDICAID ==
--- NOTE | 2019-05-01 17:36 | PCM.HP ---
H&P History of Present Illness - General Date of Service: 05/01/19 Admit Problem/Dx: Admission Diagnosis/Problem Admission Diagnosis/Problem Cellulitis Source of Information: Patient History Limitations: Reports: No Limitations - History of Present Illness Onset of Symptoms: Reports: Gradual Duration of Symptoms: Reports: Day(s): (two days ago the redness and swelling started, three weeks ago burned the tip) Location: Reports: Upper Extremity, Left (index finger) Quality: Reports: Ache Severity: Moderate Improves with: Reports: Rest, Other (elevation) Worsens with: Reports: Movement Context: Reports: Trauma (burned distal tip three weeks ago, more remote h/o traumatic degloving wound mid-October of this year which had healed very slowly) Associated Symptoms: Reports: Malaise, Weakness Left Finger-Index Pain Score (Numeric/FACES): 2 - Related Data Allergies/Adverse Reactions: Allergies Allergy/AdvReac Type Severity Reaction Status Date / Time No Known Allergies Allergy Verified 11/17/18 07:12 Home Medications: Home Meds Albuterol Sulfate [Proair Hfa] 8.5 gm IH Q4HR PRN 01/07/19 [History] Furosemide 40 mg PO DAILY 01/07/19 [History] Glimepiride [Amaryl] 6 mg PO DAILY 01/07/19 [History] Ipratropium/Albuterol Sulfate [Iprat-Albut 0.5-3(2.5) mg/3 ml] 3 ml IH Q4HR PRN 01/07/19 [History] Liraglutide [Victoza 3-Wero] 1.8 mg SUBCUT DAILY 01/07/19 [History] Omeprazole 20 mg PO DAILY 01/07/19 [History] Rivaroxaban [Xarelto] 20 mg pe PO DAILY 01/07/19 [History] Simvastatin [Zocor] 10 mg PO BEDTIME 01/07/19 [History] Spironolactone [Aldactone] 25 mg PO DAILY 01/07/19 [History] metFORMIN [Glucophage] 1,000 mg PO BIDMEALS 01/07/19 [History] Carvedilol [Coreg] 12.5 mg PO BID 05/01/19 [History] Furosemide [Lasix] 60 mg PO QPM 05/01/19 [History] Insulin Detemir [Levemir Flextouch] 34 units SUBCUT BEDTIME 05/01/19 [History] Lisinopril [Prinivil] 2.5 mg PO DAILY 05/01/19 [History] Tamsulosin [Tamsulosin 24 Hr] 2 cap PO DAILY 05/01/19 [History] Past Medical History HEENT History: Reports: Impaired Vision, Other (See Below) Other HEENT History: He wears OTC reading glasses. No diabetic retinopathy to this point. Cardiovascular History: Reports: Afib, Arrhythmia, Cardiomyopathy, High Cholesterol, Hypertension, Syncope, Other (See Below) Other Cardiovascular History: Unsuccessful cardioversion atrial fibrillation 2 initially in 2014 and then again 2017. Dependent edema with no known previous history of CHF. Recurrent Syncope and near-syncope with no previous workup. PVCs. Moderate cardiomegaly with left atrial enlargement by echocardiogram. Respiratory History: Reports: Bronchitis, Recurrent, COPD, Intubation, Previous , Sleep Apnea Gastrointestinal History: Reports: Colon Polyp, GERD, Other (See Below) Other Gastrointestinal History: Multiple colonic polyps in about 2014. Genitourinary History: Reports: BPH Musculoskeletal History: Reports: Arthritis, Back Pain, Chronic, Osteoarthritis Other Musculoskeletal History: Degenerative disc disease with chronic low back pain and epidural steroid injections 3 in 2018 with last procedure on 02/01/19 Neurological History: Reports: Neuropathy, Diabetic, Neuropathy, Peripheral Psychiatric History: Reports: None Endocrine/Metabolic History: Reports: Diabetes, Type II, IDDM, Obesity/BMI 30+ Immunologic History: Reports: None - Infectious Disease History Infectious Disease History: Reports: Chicken Pox, Measles, Mumps. Denies: C- Difficile, Meningitis, Mononucleosis, MRSA, Pertussis (Whooping Cough), Rubella , Scarlet Fever, Shingles, TB, VRE - Past Surgical History Head Surgeries/Procedures: Reports: None HEENT Surgical History: Reports: Oral Surgery, Other (See Below) Other HEENT Surgeries/Procedures: [place] teeth extraction 2 with additional multiple teeth extractions Cardiovascular Surgical History: Reports: None Respiratory Surgical History: Reports: None GI Surgical History: Reports: Colonoscopy, Polypectomy, Other (See Below) Other GI Surgeries/Procedures: Colonoscopy in about 2014 with multiple polypectomies. Male Surgical History: Reports: Circumcision Endocrine Surgical History: Reports: None Neurological Surgical History: Reports: None Musculoskeletal Surgical History: Reports: None Oncologic Surgical History: Reports: None Dermatological Surgical History: Reports: None - Past Imaging History Past Imaging History: Reports: Cardiac Echo (09/05/18 suboptimal with no ejection fraction calculated.), MRI (MRI of the lumbar spine on 11/14/18.), Stress Testing (Negative possible adenosine Cardiolite stress test in about 2014.) Social & Family History - Tobacco Use Tobacco Use Within Last Twelve Months: No - Caffeine Use Caffeine Use: Reports: Coffee, Soda - Living Situation & Occupation Living situation: Reports: (2008. 3 step children), with Family () Occupation: Unemployed (Previous electrical construction project manager) H&P Review of Systems - Review of Systems: Review Of Systems: ROS reveals no pertinent complaints other than HPI. Exam - Exam Exam: See Below - Vital Signs Vital Signs: Last Vital Signs Temp 99.9 F 05/01/19 16:50 Pulse 106 H 05/01/19 16:50 Resp 17 05/01/19 16:50 BP 121/77 05/01/19 16:50 Pulse Ox 95 05/01/19 16:50 Weight: 331 lb 1.6 oz - Exam General: Alert, Oriented, 4 HEENT: EACs Clear, EOMI, Hearing Intact, Mucosa Moist & [place] Neck: Supple, Trachea Midline Lungs: Clear to Auscultation, Normal Respiratory Effort Cardiovascular: Irregular Rhythm (chronic a-fib) GI/Abdominal Exam: Normal Bowel Sounds, Soft, Non-Tender, Other (pendulous) (Male) Exam: Deferred Rectal (Males) Exam: Deferred Back Exam: Normal Inspection Extremities: Pedal Edema (chronic stable at 1-2+), Other (left index finger acutely red and swollen, with some erythema extending proximally up the distal dorsum of the hand. Sensation limited d/t neuropathy.) Skin: Warm, Dry, Wound (Hard dark eschar to distal left index fingertip. Dry, no drainage.) Neurological: Cranial Nerves Intact Neuro Extensive - Mental Status: Alert, Oriented x3, Normal Mood/Affect, Normal Cognition, Memory Intact Psychiatric: Alert, Normal Affect, Normal Mood - Patient Data Lab Results Last 24 hrs: Laboratory Results - last 24 hr 05/01/19 Range/Units 16:35 Lactic Acid 1.5 (0.4-2.0) mmol/L - Problem List (1) Cellulitis and abscess of finger, unspecified SNOMED Code(s): 081618983 ICD Code: L03.019 - CELLULITIS OF UNSPECIFIED FINGER; L02.519 - CUTANEOUS ABSCESS OF UNSPECIFIED HAND Status: Acute Priority: High Current Visit: Yes Onset Date: ~04/29/19 Problem Details: left index finger Problem List Initiated/Reviewed/Updated: Yes Orders Last 24hrs: Active Orders 24 hr Category Date Time Status Patient Status [ADT] Routine ADT 05/01/19 16:22 Active Height and Weight [RC] DAILY Care 05/01/19 16:22 Active Intake and Output [RC] QSHIFT Care 05/01/19 16:24 Active May Shower [RC] ASDIRECTED Care 05/01/19 16:22 Active Notify Provider Consults [RC] ASDIRECTED Care 05/01/19 16:31 Active Oxygen Therapy [RC] PRN Care 05/01/19 16:22 Active Up ad Natasha [RC] ASDIRECTED Care 05/01/19 16:22 Active VTE/DVT Education [RC] PER UNIT ROUTINE Care 05/01/19 16:22 Active Vital Signs [RC] Q4H Care 05/01/19 16:22 Active Consult to Physician [CONS] Routine Cons 05/01/19 16:28 Active [employer] Diet [DIET] Diet 05/01/19 Dinner Active Hand Comp Min 3V Lt [CR] Routine Exams 05/01/19 14:45 Taken C-REACTIVE PROTEIN [CHEM] AM Lab 05/02/19 05:11 Ordered C-REACTIVE PROTEIN [CHEM] AM Lab 05/03/19 05:11 Ordered C-REACTIVE PROTEIN [CHEM] AM Lab 05/04/19 05:11 Ordered C-REACTIVE PROTEIN [CHEM] AM Lab 05/05/19 05:11 Ordered CBC WITH AUTO DIFF [HEME] AM Lab 05/02/19 05:11 Ordered CBC WITH AUTO DIFF [HEME] AM Lab 05/03/19 05:11 Ordered CBC WITH AUTO DIFF [HEME] AM Lab 05/04/19 05:11 Ordered CBC WITH AUTO DIFF [HEME] AM Lab 05/05/19 05:11 Ordered COMPREHENSIVE METABOLIC PN,CMP [CHEM] AM Lab 05/02/19 05:11 Ordered COMPREHENSIVE METABOLIC PN,CMP [CHEM] AM Lab 05/03/19 05:11 Ordered COMPREHENSIVE METABOLIC PN,CMP [CHEM] AM Lab 05/04/19 05:11 Ordered COMPREHENSIVE METABOLIC PN,CMP [CHEM] AM Lab 05/05/19 05:11 Ordered CULTURE BLOOD [BC] Stat Lab 05/01/19 16:35 Received CULTURE BLOOD [BC] Stat Lab 05/01/19 16:40 Received GLYCOSYLATED HEMOGLOBIN,HGBA1C [CHEM] Routine Lab 05/02/19 05:11 Ordered Pharmacy to Dose - Vancomycin Med 05/01/19 16:45 Pending 1 dose .XX ASDIRECTED cefTAZidime Pentahydrate [Fortaz] Med 05/02/19 00:00 Active 1 gm IVPUSH Q8HR Blood Culture x2 Reflex Set [OM.PC] Stat Oth 05/01/19 16:22 Ordered Resuscitation Status Routine Resus Stat 05/01/19 16:22 Ordered Medication Orders Ceftazidime (Fortaz) 1 gm IVPUSH Q8HR SOFI Vancomycin HCl (Pharmacy To Dose - Vancomycin) 1 dose .XX ASDIRECTED [facility] Assessment/Plan Comment:: 05-01-19 Jesus Leach PA-C Admitting to IP status under the medical management of Dr. Mora for acute left index finger cellulitis, with concern for sepsis and/or osteomyelitis. White count 18,100 with 85.8% neutrophils and ESR 80, CRP 12.5. Lactic acid is WNL. X-rays obtained, no acute process identified on these. IV antibiotics started include Vancomycin and Fortaz. Consult placed to Dr. Kee Lala, Orthopedist who will be here in two days, to evaluate for possible I&D. Anticipate at least 96 hours of IP care, this infection is complicated by comorbidities of DM and neuropathy. Random glucose 308, we will monitor accu-cheks and A1C is ordered.
[2019-05-01] MEDS ORDERED: Albuterol 8 GM Inhaler INH PRN (18:02)
[2019-05-01] MEDS ORDERED: Albuterol/Ipratropium 3.0-0.5 MG/3 ML Neb Soln NEB PRN (18:02)
[2019-05-01] MEDS ORDERED: Furosemide 40 MG Tab PO SCH (18:30)
[2019-05-01] MEDS ORDERED: Carvedilol 12.5 MG Tab PO SCH (18:30)
[2019-05-01] MEDS: cefTAZidime 1 GM Vial IVPUSH SCH (18:37)
[2019-05-01] MEDS: Vancomycin 1.75 GM in Sodium Chloride 0.9% 500 ML IV SCH (18:40)
[2019-05-01] MEDS ORDERED: Simvastatin 10 MG Tab PO SCH (20:00)
[2019-05-01] MEDS ORDERED: Insulin Glarg,Human.Rec.Analog 100 UNIT/ML ML SUBCUT SCH (20:00)
[2019-05-01] MEDS: metFORMIN 500 MG Tab PO SCH (20:10)
[2019-05-01] MEDS: Acetaminophen 325 MG Tab PO PRN (20:37)
[2019-05-02] MEDS ORDERED: cefTAZidime 1 GM Vial IVPUSH SCH
[2019-05-02] MEDS: cefTAZidime 1 GM Vial IVPUSH SCH ×2 (00:23→07:22)
[2019-05-02] MEDS: Vancomycin 1.75 GM in Sodium Chloride 0.9% 500 ML IV SCH (05:49)
[2019-05-02] MEDS: Acetaminophen 325 MG Tab PO PRN (07:21)
[2019-05-02] MEDS: metFORMIN 500 MG Tab PO SCH (07:22)
[2019-05-02] MEDS ORDERED: Omeprazole 20 MG Cap.CR PO SCH (08:00)
[2019-05-02] MEDS ORDERED: Glimepiride 2 MG Tab PO SCH (08:00)
[2019-05-02] MEDS ORDERED: Lisinopril 5 MG Tab PO SCH (08:00)
[2019-05-02] MEDS ORDERED: Non-Formulary Medication 1 Each (Liraglutide [Victoza] 1.8 MG) SUBCUT SCH (08:00)
[2019-05-02] MEDS ORDERED: Carvedilol 12.5 MG Tab PO SCH (08:00)
[2019-05-02] MEDS ORDERED: Furosemide 40 MG Tab PO SCH (08:00)
[2019-05-02] MEDS ORDERED: Spironolactone 25 MG Tab PO SCH (08:00)
[2019-05-02] MEDS ORDERED: Tamsulosin 0.4 MG Cap.ER PO SCH (08:00)
[2019-05-02 08:17] LABS: CHLORIDE,CL 96 mmol/L (98-107); SODIUM,NA 138 mmol/L (136-145)
[2019-05-02 08:26] LABS: HEMOGLOBIN A1C 9.1 % (4.3-5.7)
[2019-05-02] MEDS ORDERED: Sodium Chloride 0.9% 10 ML Syringe FLUSH PRN ×2 (10:54→11:47)
--- NOTE | 2019-05-02 14:42 | PCM.PN ---
- General Info Date of Service: 05/02/19 Admission Dx/Problem (Free Text): Admission Diagnosis/Problem Admission Diagnosis/Problem Cellulitis Functional Status: Reports: Pain Controlled, Tolerating Diet - Review of Systems General: Reports: Fever HEENT: Reports: No Symptoms Pulmonary: Reports: No Symptoms Cardiovascular: Reports: No Symptoms Gastrointestinal: Reports: No Symptoms Genitourinary: Reports: No Symptoms Musculoskeletal: Reports: Joint Swelling (left index finger) Skin: Reports: Other (left index finger edema and redness) Neurological: Reports: Paresthesia (to upper extremities bilat from diabetes) Psychiatric: Reports: No Symptoms - Patient Data Vitals - Most Recent: Last Vital Signs Temp 97.1 F 05/02/19 11:14 Pulse 68 05/02/19 11:14 Resp 17 05/02/19 11:14 BP 124/65 05/02/19 11:14 Pulse Ox 97 05/02/19 11:14 Weight - Most Recent: 326 lb 12.8 oz I&O - Last 24 Hours: Intake & Output 05/01/19 05/02/19 05/02/19 22:59 06:59 14:59 Intake Total 1445 1460 Output Total 400 1900 550 Balance 1045 -1900 910 Lab Results Last 24 Hours: Laboratory Results - last 24 hr 05/01/19 05/01/19 05/02/19 Range/Units 16:35 20:13 06:54 WBC 17.8 H (4.0-10.2) K/uL RBC 3.70 L (4.33-5.41) M/uL Hgb 10.2 L (13.1-16.8) g/dL Hct 32.4 L (39.0-49.0) % MCV 87.6 (84.0-98.0) fL MCH 27.6 L (28.2-33.3) pg MCHC 31.5 L (31.7-36.0) g/dL RDW 14.4 H (11.2-14.1) % Plt Count 224 D (150-350) K/uL Neut % (Auto) 79.2 (45.0-80.0) % Lymph % (Auto) 9.2 L (10.0-50.0) % [place] % (Auto) 10.6 (2.0-14.0) % Eos % (Auto) 0.8 (0.0-5.0) % Baso % (Auto) 0.2 (0.0-2.0) % Neut # (Auto) 14.08 H (1.40-7.00) K/uL Lymph # (Auto) 1.64 (0.50-3.50) K/uL [place] # (Auto) 1.88 H (0.00-1.00) K/uL Eos # (Auto) 0.15 (0.00-0.50) K/uL Baso # (Auto) 0.03 (0.00-0.20) K/uL Sodium (136-145) mmol/L Potassium (3.5-5.1) mmol/L Chloride (98-107) mmol/L Carbon Dioxide (21.0-32.0) mmol/L BUN (7-18) mg/dL Creatinine (0.51-1.17) mg/dL Est Cr Clr Drug Dosing mL/min Estimated GFR (MDRD) mL/min Glucose (74-106) mg/dL POC Glucose 309 H* (65-110) mg/dl Hemoglobin A1c (4.3-5.7) % Lactic Acid 1.5 (0.4-2.0) mmol/L Calcium (8.5-10.1) mg/dL Total Bilirubin (0.2-1.0) mg/dL AST (15-37) U/L ALT (12-78) U/L Alkaline Phosphatase (46-116) IU/L C-Reactive Protein (<=0.9) mg/dL Total Protein (6.4-8.2) g/dL Albumin (3.4-5.0) g/dL 05/02/19 05/02/19 05/02/19 Range/Units 06:54 06:54 06:54 WBC (4.0-10.2) K/uL RBC (4.33-5.41) M/uL Hgb (13.1-16.8) g/dL Hct (39.0-49.0) % MCV (84.0-98.0) fL MCH (28.2-33.3) pg MCHC (31.7-36.0) g/dL RDW (11.2-14.1) % Plt Count (150-350) K/uL Neut % (Auto) (45.0-80.0) % Lymph % (Auto) (10.0-50.0) % [place] % (Auto) (2.0-14.0) % Eos % (Auto) (0.0-5.0) % Baso % (Auto) (0.0-2.0) % Neut # (Auto) (1.40-7.00) K/uL Lymph # (Auto) (0.50-3.50) K/uL [place] # (Auto) (0.00-1.00) K/uL Eos # (Auto) (0.00-0.50) K/uL Baso # (Auto) (0.00-0.20) K/uL Sodium 138 (136-145) mmol/L Potassium 3.4 L (3.5-5.1) mmol/L Chloride 96 L (98-107) mmol/L Carbon Dioxide 31.6 (21.0-32.0) mmol/L BUN 35 H (7-18) mg/dL Creatinine 0.92 (0.51-1.17) mg/dL Est Cr Clr Drug Dosing 93.22 mL/min Estimated GFR (MDRD) > 60 mL/min Glucose 139 H (74-106) mg/dL POC Glucose (65-110) mg/dl Hemoglobin A1c 9.1 H (4.3-5.7) % Lactic Acid 1.1 (0.4-2.0) mmol/L Calcium 9.3 (8.5-10.1) mg/dL Total Bilirubin 0.9 (0.2-1.0) mg/dL AST 12 L (15-37) U/L ALT 13 (12-78) U/L Alkaline Phosphatase 90 (46-116) IU/L C-Reactive Protein 18.1 H (<=0.9) mg/dL Total Protein 7.4 (6.4-8.2) g/dL Albumin 3.3 L (3.4-5.0) g/dL 05/02/19 05/02/19 Range/Units 07:04 11:14 WBC (4.0-10.2) K/uL RBC (4.33-5.41) M/uL Hgb (13.1-16.8) g/dL Hct (39.0-49.0) % MCV (84.0-98.0) fL MCH (28.2-33.3) pg MCHC (31.7-36.0) g/dL RDW (11.2-14.1) % Plt Count (150-350) K/uL Neut % (Auto) (45.0-80.0) % Lymph % (Auto) (10.0-50.0) % [place] % (Auto) (2.0-14.0) % Eos % (Auto) (0.0-5.0) % Baso % (Auto) (0.0-2.0) % Neut # (Auto) (1.40-7.00) K/uL Lymph # (Auto) (0.50-3.50) K/uL [place] # (Auto) (0.00-1.00) K/uL Eos # (Auto) (0.00-0.50) K/uL Baso # (Auto) (0.00-0.20) K/uL Sodium (136-145) mmol/L Potassium (3.5-5.1) mmol/L Chloride (98-107) mmol/L Carbon Dioxide (21.0-32.0) mmol/L BUN (7-18) mg/dL Creatinine (0.51-1.17) mg/dL Est Cr Clr Drug Dosing mL/min Estimated GFR (MDRD) mL/min Glucose (74-106) mg/dL POC Glucose 143 H 291 H* (65-110) mg/dl Hemoglobin A1c (4.3-5.7) % Lactic Acid (0.4-2.0) mmol/L Calcium (8.5-10.1) mg/dL Total Bilirubin (0.2-1.0) mg/dL AST (15-37) U/L ALT (12-78) U/L Alkaline Phosphatase (46-116) IU/L C-Reactive Protein (<=0.9) mg/dL Total Protein (6.4-8.2) g/dL Albumin (3.4-5.0) g/dL Med Orders - Current: Current Medications Acetaminophen (Tylenol) 650 mg PO Q6H PRN PRN Reason: Pain (moderate 4-6) Last Admin: 05/02/19 07:21 Dose: 650 mg Albuterol (Ventolin Hfa) 0 gm INH Q4H PRN PRN Reason: Shortness of Breath Albuterol/Ipratropium (Duoneb 3.0-0.5 Mg/3 Ml) 3 ml NEB Q4HR PRN PRN Reason: Shortness of Breath Carvedilol (Coreg) 12.5 mg PO Q12HR [facility] Last Admin: 05/02/19 07:20 Dose: 12.5 mg Ceftazidime (Fortaz) 1 gm IVPUSH Q8H [facility] Last Admin: 05/02/19 07:22 Dose: 1 gm Furosemide (Lasix) 40 mg PO DAILY [facility] Last Admin: 05/02/19 07:20 Dose: 40 mg Furosemide (Lasix) 60 mg PO QPM [facility] Last Admin: 05/01/19 18:37 Dose: 60 mg Glimepiride (Amaryl) 6 mg PO DAILY [facility] Last Admin: 05/02/19 07:22 Dose: 6 mg Vancomycin HCl 1.75 gm/ Sodium (Chloride) 500 mls @ 185 mls/hr IV Q12H [facility] Last Admin: 05/02/19 05:49 Dose: 185 mls/hr Insulin Glargine (Lantus) 34 unit SUBCUT BEDTIME [facility] Last Admin: 05/01/19 20:10 Dose: 34 unit Lisinopril (Prinivil) 2.5 mg PO DAILY [facility] Last Admin: 05/02/19 07:21 Dose: Not Given Metformin HCl (Glucophage) 1,000 mg PO BIDMEALS [facility] Last Admin: 05/02/19 07:22 Dose: 1,000 mg Non-Formulary Medication (Liraglutide [Victoza]) 1.8 mg SUBCUT DAILY [facility] Omeprazole (Omeprazole) 20 mg PO DAILY [facility] Last Admin: 05/02/19 07:25 Dose: 20 mg Potassium Chloride (Klor-Con M20) 20 meq PO BID [facility] Rivaroxaban (Xarelto) 20 mg PO QPM [facility] Simvastatin (Zocor) 10 mg PO BEDTIME [facility] Last Admin: 05/01/19 20:10 Dose: 10 mg Sodium Chloride (Saline Flush) 10 ml FLUSH ASDIRECTED PRN PRN Reason: Keep Vein Open Sodium Chloride (Saline Flush) 10 ml FLUSH ASDIRECTED PRN PRN Reason: Keep Vein Open Spironolactone (Aldactone) 25 mg PO DAILY [facility] Last Admin: 05/02/19 07:20 Dose: 25 mg Tamsulosin HCl (Flomax) 0.8 mg PO DAILY [facility] Last Admin: 05/02/19 07:20 Dose: 0.8 mg Vancomycin HCl (Pharmacy To Dose - Vancomycin) 1 dose .XX ASDIRECTED [facility] Discontinued Medications Carvedilol (Coreg) 12.5 mg PO BID [facility] Last Admin: 05/01/19 18:37 Dose: 12.5 mg Ceftazidime (Fortaz) 1 gm IVPUSH Q8HR [facility] - Exam General: Alert, Oriented, Cooperative, No Acute Distress HEENT: Pupils Equal, Pupils Reactive, EOMI, Mucous Membr. Moist/[place] Neck: Supple, Trachea Midline Lungs: Clear to Auscultation, Normal Respiratory Effort Cardiovascular: Regular Rate, Regular Rhythm GI/Abdominal Exam: Normal Bowel Sounds, Soft, Non-Tender, No Organomegaly Extremities: Other (left index finger red and swollen, yellow drainage noted. Redness extends into the hand) Peripheral Pulses: 1+: Radial (L), Radial (R), Dorsalis Pedis (L), Dorsalis Pedis (R) Skin: Warm, Dry, Intact, Other (scabbed areas noted on bilat LE) Wound/Incisions: Drainage, Erythema (increased drainage to left index finger) Neurological: No New Focal Deficit Psy/Mental Status: Alert, Normal Affect, Normal Mood - Problem List Review Problem List Initiated/Reviewed/Updated: Yes - Plan Plan:: 05-01-19 Jesus Leach PA-C Admitting to IP status under the medical management of Dr. Mora for acute left index finger cellulitis, with concern for sepsis and/or osteomyelitis. White count 18,100 with 85.8% neutrophils and ESR 80, CRP 12.5. Lactic acid is WNL. X-rays obtained, no acute process identified on these. IV antibiotics started include Vancomycin and Fortaz. Consult placed to Dr. Kee Lala, Orthopedist who will be here in two days, to evaluate for possible I&D. Anticipate at least 96 hours of IP care, this infection is complicated by comorbidities of DM and neuropathy. Random glucose 308, we will monitor accu-cheks and A1C is ordered. 05/02/2019 Patient states pain to finger is minimal however the patient has neuropathy so doesn't feel much any ways to the finger. Now yellow drainage noted, culture done. Patient has been on IV antibiotics with little improvement. Still with elevated white count and sed rate. Patient is not well controlled with his diabetes. Redness on left index finger continues into the hand, tip of finger is necrotic, fingernail bed is deformed from previous trauma about 6 months ago in a door. Consulted with Dr Spike maki that comes to [place] tomorrow, he recommends the patient be referred to hand surgeon. Discussed with patient who agrees to the plan of care. Called [place] and talked to Dr Morse who agreed to accept the patient for transfer. Will transfer per ambulance. Carlene Foster, RETAIL ATTENDANT
--- NOTE | 2019-05-02 15:09 | PCM.DCSUM1 ---
Discharge Summary - Hospital Course Free Text/Narrative:: Patient was admitted for left index finger cellulitis. Started on IV antibiotics with little improvement. Redness extends into the hand, yellow drainage noted and necrotic tip. Consulted with Dr Spike maki that comes to [place] on 05/03/2019 who recommends transfer to hand surgeon for debridement. HPI Initial Comments: Patient had a previous trauma to the finger catching it in a patio door about 6 months ago (degloving), which was slow to headl. Two weeks ago burned the left index finger tip with blistering noted and three days ago the finger started to get redness and swollen. - Discharge Data Discharge Date: 05/02/19 Discharge Disposition: DC/Tfer to Acute Hospital 02 Condition: Fair - Patient Summary/Data Consults: Consultations 05/01/19 16:28 Consult to Physician [CONS] Routine 05/02/19 08:00 Consult to Occupational Therapy [OT Evaluation and Treatment] [CONS] Routine Consult to Physical Therapy [PT Evaluation and Treatment] [CONS] Routine - Patient Instructions Diet: Diabetic Diet Driving: Do Not Drive Showering/Bathing: May Shower Wound/Incision Care: Change Dressing Daily - Discharge Plan *PRESCRIPTION DRUG MONITORING PROGRAM REVIEWED*: Not Applicable *COPY OF PRESCRIPTION DRUG MONITORING REPORT IN PATIENT SHALINI: Not Applicable Home Medications: Home Meds Albuterol Sulfate [Proair Hfa] 8.5 gm IH Q4HR PRN 01/07/19 [History] Furosemide 40 mg PO DAILY 01/07/19 [History] Glimepiride [Amaryl] 6 mg PO DAILY 01/07/19 [History] Ipratropium/Albuterol Sulfate [Iprat-Albut 0.5-3(2.5) mg/3 ml] 3 ml IH Q4HR PRN 01/07/19 [History] Liraglutide [Victoza 3-Wero] 1.8 mg SUBCUT DAILY 01/07/19 [History] Omeprazole 20 mg PO DAILY 01/07/19 [History] Rivaroxaban [Xarelto] 20 mg pe PO DAILY 01/07/19 [History] Simvastatin [Zocor] 10 mg PO BEDTIME 01/07/19 [History] Spironolactone [Aldactone] 25 mg PO DAILY 01/07/19 [History] metFORMIN [Glucophage] 1,000 mg PO BIDMEALS 01/07/19 [History] Carvedilol [Coreg] 12.5 mg PO BID 05/01/19 [History] Furosemide [Lasix] 60 mg PO QPM 05/01/19 [History] Insulin Detemir [Levemir Flextouch] 34 units SUBCUT BEDTIME 05/01/19 [History] Tamsulosin [Tamsulosin 24 Hr] 2 cap PO DAILY 05/01/19 [History] Oxygen Therapy Mode: Room Air Patient Handouts: Ceftazidime injection, Cellulitis, Adult, [id number], Vancomycin injection - Discharge Summary/Plan Comment DC Time >30 min.: No Discharge Summary/Plan Comment: Patient is transferred to [facility] to services of Dr Morse. Patient is in need of hand surgeon as he is at increased risk to lose his finger. Known diabetic with a hgbA1c over 9.0 and multiple comorbidities. Will transfer by ambulance for monitoring of the finger, pain control and IV antibiotics and fluids are infusing. Carlene Foster CNP - Patient Data Vitals - Most Recent: Last Vital Signs Temp 97.1 F 05/02/19 11:14 Pulse 68 05/02/19 11:14 Resp 17 05/02/19 11:14 BP 124/65 05/02/19 11:14 Pulse Ox 97 05/02/19 11:14 Weight - Most Recent: 326 lb 12.8 oz I&O - Last 24 hours: Intake & Output 05/02/19 05/02/19 05/02/19 06:59 14:59 22:59 Intake Total 1460 Output Total 1900 550 Balance -1900 910 Lab Results - Last 24 hrs: Laboratory Results - last 24 hr 05/01/19 05/01/19 05/02/19 Range/Units 16:35 20:13 06:54 WBC 17.8 H (4.0-10.2) K/uL RBC 3.70 L (4.33-5.41) M/uL Hgb 10.2 L (13.1-16.8) g/dL Hct 32.4 L (39.0-49.0) % MCV 87.6 (84.0-98.0) fL MCH 27.6 L (28.2-33.3) pg MCHC 31.5 L (31.7-36.0) g/dL RDW 14.4 H (11.2-14.1) % Plt Count 224 D (150-350) K/uL Neut % (Auto) 79.2 (45.0-80.0) % Lymph % (Auto) 9.2 L (10.0-50.0) % [place] % (Auto) 10.6 (2.0-14.0) % Eos % (Auto) 0.8 (0.0-5.0) % Baso % (Auto) 0.2 (0.0-2.0) % Neut # (Auto) 14.08 H (1.40-7.00) K/uL Lymph # (Auto) 1.64 (0.50-3.50) K/uL [place] # (Auto) 1.88 H (0.00-1.00) K/uL Eos # (Auto) 0.15 (0.00-0.50) K/uL Baso # (Auto) 0.03 (0.00-0.20) K/uL Sodium (136-145) mmol/L Potassium (3.5-5.1) mmol/L Chloride (98-107) mmol/L Carbon Dioxide (21.0-32.0) mmol/L BUN (7-18) mg/dL Creatinine (0.51-1.17) mg/dL Est Cr Clr Drug Dosing mL/min Estimated GFR (MDRD) mL/min Glucose (74-106) mg/dL POC Glucose 309 H* (65-110) mg/dl Hemoglobin A1c (4.3-5.7) % Lactic Acid 1.5 (0.4-2.0) mmol/L Calcium (8.5-10.1) mg/dL Total Bilirubin (0.2-1.0) mg/dL AST (15-37) U/L ALT (12-78) U/L Alkaline Phosphatase (46-116) IU/L C-Reactive Protein (<=0.9) mg/dL Total Protein (6.4-8.2) g/dL Albumin (3.4-5.0) g/dL 05/02/19 05/02/19 05/02/19 Range/Units 06:54 06:54 06:54 WBC (4.0-10.2) K/uL RBC (4.33-5.41) M/uL Hgb (13.1-16.8) g/dL Hct (39.0-49.0) % MCV (84.0-98.0) fL MCH (28.2-33.3) pg MCHC (31.7-36.0) g/dL RDW (11.2-14.1) % Plt Count (150-350) K/uL Neut % (Auto) (45.0-80.0) % Lymph % (Auto) (10.0-50.0) % [place] % (Auto) (2.0-14.0) % Eos % (Auto) (0.0-5.0) % Baso % (Auto) (0.0-2.0) % Neut # (Auto) (1.40-7.00) K/uL Lymph # (Auto) (0.50-3.50) K/uL [place] # (Auto) (0.00-1.00) K/uL Eos # (Auto) (0.00-0.50) K/uL Baso # (Auto) (0.00-0.20) K/uL Sodium 138 (136-145) mmol/L Potassium 3.4 L (3.5-5.1) mmol/L Chloride 96 L (98-107) mmol/L Carbon Dioxide 31.6 (21.0-32.0) mmol/L BUN 35 H (7-18) mg/dL Creatinine 0.92 (0.51-1.17) mg/dL Est Cr Clr Drug Dosing 93.22 mL/min Estimated GFR (MDRD) > 60 mL/min Glucose 139 H (74-106) mg/dL POC Glucose (65-110) mg/dl Hemoglobin A1c 9.1 H (4.3-5.7) % Lactic Acid 1.1 (0.4-2.0) mmol/L Calcium 9.3 (8.5-10.1) mg/dL Total Bilirubin 0.9 (0.2-1.0) mg/dL AST 12 L (15-37) U/L ALT 13 (12-78) U/L Alkaline Phosphatase 90 (46-116) IU/L C-Reactive Protein 18.1 H (<=0.9) mg/dL Total Protein 7.4 (6.4-8.2) g/dL Albumin 3.3 L (3.4-5.0) g/dL 05/02/19 05/02/19 Range/Units 07:04 11:14 WBC (4.0-10.2) K/uL RBC (4.33-5.41) M/uL Hgb (13.1-16.8) g/dL Hct (39.0-49.0) % MCV (84.0-98.0) fL MCH (28.2-33.3) pg MCHC (31.7-36.0) g/dL RDW (11.2-14.1) % Plt Count (150-350) K/uL Neut % (Auto) (45.0-80.0) % Lymph % (Auto) (10.0-50.0) % [place] % (Auto) (2.0-14.0) % Eos % (Auto) (0.0-5.0) % Baso % (Auto) (0.0-2.0) % Neut # (Auto) (1.40-7.00) K/uL Lymph # (Auto) (0.50-3.50) K/uL [place] # (Auto) (0.00-1.00) K/uL Eos # (Auto) (0.00-0.50) K/uL Baso # (Auto) (0.00-0.20) K/uL Sodium (136-145) mmol/L Potassium (3.5-5.1) mmol/L Chloride (98-107) mmol/L Carbon Dioxide (21.0-32.0) mmol/L BUN (7-18) mg/dL Creatinine (0.51-1.17) mg/dL Est Cr Clr Drug Dosing mL/min Estimated GFR (MDRD) mL/min Glucose (74-106) mg/dL POC Glucose 143 H 291 H* (65-110) mg/dl Hemoglobin A1c (4.3-5.7) % Lactic Acid (0.4-2.0) mmol/L Calcium (8.5-10.1) mg/dL Total Bilirubin (0.2-1.0) mg/dL AST (15-37) U/L ALT (12-78) U/L Alkaline Phosphatase (46-116) IU/L C-Reactive Protein (<=0.9) mg/dL Total Protein (6.4-8.2) g/dL Albumin (3.4-5.0) g/dL Med Orders - Current: Current Medications Acetaminophen (Tylenol) 650 mg PO Q6H PRN PRN Reason: Pain (moderate 4-6) Last Admin: 05/02/19 07:21 Dose: 650 mg Albuterol (Ventolin Hfa) 0 gm INH Q4H PRN PRN Reason: Shortness of Breath Albuterol/Ipratropium (Duoneb 3.0-0.5 Mg/3 Ml) 3 ml NEB Q4HR PRN PRN Reason: Shortness of Breath Carvedilol (Coreg) 12.5 mg PO Q12HR [facility] Last Admin: 05/02/19 07:20 Dose: 12.5 mg Ceftazidime (Fortaz) 1 gm IVPUSH Q8H [facility] Last Admin: 05/02/19 07:22 Dose: 1 gm Furosemide (Lasix) 40 mg PO DAILY [facility] Last Admin: 05/02/19 07:20 Dose: 40 mg Furosemide (Lasix) 60 mg PO QPM [facility] Last Admin: 05/01/19 18:37 Dose: 60 mg Glimepiride (Amaryl) 6 mg PO DAILY [facility] Last Admin: 05/02/19 07:22 Dose: 6 mg Vancomycin HCl 1.75 gm/ Sodium (Chloride) 500 mls @ 185 mls/hr IV Q12H [facility] Last Admin: 05/02/19 05:49 Dose: 185 mls/hr Sodium Chloride (Normal Saline) 1,000 mls @ 75 mls/hr IV ASDIRECTED [facility] Insulin Glargine (Lantus) 34 unit SUBCUT BEDTIME [facility] Last Admin: 05/01/19 20:10 Dose: 34 unit Lisinopril (Prinivil) 2.5 mg PO DAILY [facility] Last Admin: 05/02/19 07:21 Dose: Not Given Metformin HCl (Glucophage) 1,000 mg PO BIDMEALS [facility] Last Admin: 05/02/19 07:22 Dose: 1,000 mg Non-Formulary Medication (Liraglutide [Victoza]) 1.8 mg SUBCUT DAILY [facility] Omeprazole (Omeprazole) 20 mg PO DAILY [facility] Last Admin: 05/02/19 07:25 Dose: 20 mg Potassium Chloride (Klor-Con M20) 20 meq PO BID [facility] Rivaroxaban (Xarelto) 20 mg PO QPM [facility] Simvastatin (Zocor) 10 mg PO BEDTIME [facility] Last Admin: 05/01/19 20:10 Dose: 10 mg Sodium Chloride (Saline Flush) 10 ml FLUSH ASDIRECTED PRN PRN Reason: Keep Vein Open Sodium Chloride (Saline Flush) 10 ml FLUSH ASDIRECTED PRN PRN Reason: Keep Vein Open Spironolactone (Aldactone) 25 mg PO DAILY [facility] Last Admin: 05/02/19 07:20 Dose: 25 mg Tamsulosin HCl (Flomax) 0.8 mg PO DAILY [facility] Last Admin: 05/02/19 07:20 Dose: 0.8 mg Vancomycin HCl (Pharmacy To Dose - Vancomycin) 1 dose .XX ASDIRECTED [facility] Discontinued Medications Carvedilol (Coreg) 12.5 mg PO BID [facility] Last Admin: 05/01/19 18:37 Dose: 12.5 mg Ceftazidime (Fortaz) 1 gm IVPUSH Q8HR [facility]
[2019-05-02] MEDS ORDERED: Sodium Chloride 0.9% 1,000 ML IV SCH (15:15)
[2019-05-02] MEDS ORDERED: Rivaroxaban 10 MG Tab PO SCH (18:00)
[2019-05-02] MEDS ORDERED: Potassium Chloride 20 MEQ Tab.ER PO SCH (18:00)
--- OUTSIDE RECORDS SUMMARY | 2019-05-09 10:48 | XMSREPORT ---
:1960 Author Organization Address [address] [place] [address] [address] [place] [address] Care Team Providers Name Role Phone Provider, No Attributed RESOURCE Attributed Provider Unavailable Roro Leach Primary Care Provider Reason for Visit Reason Comments Auth/Cert Status Reason Specialty Diagnoses / Procedures Referred By Contact Referred To Contact Encounter Details Date Type Department Care Team Description 05/02/2019 - Hospital Encounter [facility] Provider, Generic Hosp Procedure MRSA bacteremia 05/08/[address] Marilin Bass MD [address] [place], [place] [id number] Robert Nair MD [address] [place], [place] [id number] [facility] YooNicole whittaker MD [address] [place] [address] [phone] [place] [address] Freddy Morse MD [address] [place] [address] [phone] Allergies No Known Allergiesdocumented as of this encounter (statuses as of 05/08/2019) Medications Medication Sig Dispensed Refills Start End Date Status Date glimepiride Take 6 mg by mouth 0 Active (AMARYL) 2 mg 1 time per day 8 tablet XARELTO 20 MG Take 20 mg by 0 Active tablet mouth 1 time a day 8 at supper metFORMIN Take by mouth 2 0 Active (GLUCOPHAGE) 1000 times a day MG tablet omeprazole Take 20 mg by 0 Active (PRILOSEC) 20 mg mouth 1 time a day capsule in the morning liraglutide Inject 0 Active (VICTOZA) 18 mg/3 subcutaneously 1 mL subcutaneous time per day injection solution (pen) simvastatin Take by mouth 0 Active (ZOCOR) 10 mg every night at tablet bedtime spironolactone Take 25 mg by 0 Active (ALDACTONE) 25 mg mouth 1 time a day tablet in the morning albuterol HFA Inhale orally 0 Active (PROVENTIL,PROAIR, every 4 to 6 hours VENTOLIN) 108 (90 as needed Shake Base) MCG/ACT well before using. inhaler insulin glargine Inject 20 Units 0 Active (TOUJEO) 300 subcutaneously 1 unit/mL time per day subcutaneous injection (pen) furosemide (LASIX) Take 1.5 tablet(60 0 Active 40 mg tablet mg) in the morning 9 and 1 (40 mg) tablet around 1600 hrs. tamsulosin Take 2 capsules 90 capsule 0 Active (FLOMAX) 0.4 mg (0.8 mg) by mouth 9 capsuleIndications 1 time per day : Benign prostatic hyperplasia with lower urinary tract symptoms, symptom details unspecified carVEDilol (COREG) Take 1 tablet 180 tablet 3 Active 12.5 mg (12.5 mg) by mouth 9 tabletIndications: 2 times a day with Persistent atrial meals fibrillation (HCC), Dilated cardiomyopathy (HCC) sodium chloride Administer 10 mL intravenously As often as necessary for other (Specify) (Flush infusion line before each antibiotic infusion and after each infusion completed) Flush infusion line before each antibiotic infusion and after each infusion completed. 0 Active 0.9% prefilled 10 Flush line with heparin 300 units/ 3 mL after the last saline flush 9 mL syringe 0.9% SOLNIndications: MRSA (methicillin resistant Staphylococcus aureus) septicemia (HCC) hEParin 100 Administer 3 mL 0 Active units/mL injection (300 Units) 9 solutionIndication intravenously As s: MRSA often as necessary (methicillin for other resistant (Specify) (heparin Staphylococcus 300 units/3 mL IV aureus) septicemia FLUSH after (HCC) completion of each antibiotic infusion (after saline flush)) heparin 300 units/3 mL IV FLUSH after completion of each antibiotic infusion (after saline flush) vancomycin Administer 1,000 0 05/31/20 Active (VANCOCIN) 1,000 mg intravenously 9 19 mg in sodium Every 12 hours for chloride 0.9% 250 23 days mLIndications: MRSA (methicillin resistant Staphylococcus aureus) septicemia (HCC) metOLazone Take 1 tablet (2.5 0 Active (ZAROXOLYN) 2.5 mg mg) by mouth 1 9 tabletIndications: time a day as Shortness of needed breath (Swelling/weight gain) acetaminophen Take 2 tablets 0 Active (TYLENOL) 325 mg (650 mg) by mouth 9 tabletIndications: Every 4 hours as Cellulitis of left needed for mild upper extremity pain or moderate pain gabapentin Take 1 capsule 30 capsule 0 08/06/20 Active (NEURONTIN) 300 mg (300 mg) by mouth 9 19 capsuleIndications every night at : Diabetic bedtime neuropathy (HCC) oxyCODONE (OXY-IR) Take 1 tablet (5 20 tablet 0 Active 5 mg tablet mg) by mouth Every 9 (immediate 4 hours as needed release)Indication for severe pain s: Cellulitis of (for pain Scale 4 left upper to 6 or pain not extremity relieved by medications for Pain Scale 1 - 3) senna-docusate Take 2 tablets by 0 Active sodium mouth 2 times a 9 (SENOKOT-S;PERICOL day as needed for WILFRED) 8.6-50 MG constipation tabletIndications: Cellulitis of left upper extremity metOLazone Take 1 tablet (2.5 15 tablet 1 05/08/20 Discontinued (ZAROXOLYN) 2.5 mg mg) by mouth 1 9 19 tabletIndications: time a day in the Shortness of morning breath lisinopril Take 1 tablet (5 30 tablet 0 05/02/20 Discontinued (PRINIVIL, mg) by mouth 1 9 19 ZESTRIL) 5 mg time per day tabletIndications: Dilated cardiomyopathy (HCC) documented as of this encounter (statuses as of 05/08/2019) Active Problems Problem Noted Date MRSA bacteremia 05/08/2019 Cellulitis 05/02/2019 Syncope 03/07/2019 Overview: Episodes of syncope x 1 and numerous near syncope Zio Patch recommended by Dr Ngo 03/07/2019 Shortness of breath 01/18/2019 Weight gain 01/18/2019 Atrial fibrillation 09/27/2018 Dilated cardiomyopathy 09/27/2018 documented as of this encounter (statuses as of 05/08/2019) Immunizations Name Dates Previously Given Next Due Influenza Trivalent w/preserv 08/01/2013 documented as of this encounter Social History Tobacco Use Types Packs/Day Years Used Date Never Smoker Smokeless Tobacco: Never Used Alcohol Use Drinks/Week oz/Week Comments No Alcohol Habits Answer Date Recorded How often do you have a drink containing alcohol? Never 03/07/2019 How many drinks containing alcohol do you have on a typical Not asked day when you are drinking? How often do you have six or more drinks on one occasion? Not asked Sex Assigned at Date Recorded Not on file Job Start Date Occupation Industry Not on file Not on file Not on file Travel History Travel Start Travel End No recent travel history available. documented as of this encounter Last Filed Vital Signs Vital Sign Reading Time Taken Blood Pressure 142/94 05/08/2019 8:00 AM CDT Pulse 66 05/08/2019 8:00 AM CDT Temperature 36.8 C (98.2 F) 05/08/2019 8:00 AM CDT Respiratory Rate 16 05/08/2019 8:00 AM CDT Oxygen Saturation 97% 05/08/2019 8:00 AM CDT Inhaled Oxygen Concentration - - Weight 148.6 kg (327 lb 9.7 oz) 05/02/2019 6:00 PM CDT Height 180.3 cm (5' 11") 05/02/2019 6:00 PM CDT Body Mass Index 45.69 05/02/2019 6:00 PM CDT documented in this encounter Functional Status Functional Status Response Date of Assessment Is the person deaf or does he/she have serious difficulty No 05/02/2019 hearing? Is this person blind or does he/she have difficulty No 05/02/2019 seeing even when wearing glasses? Do you have difficulty with walking, balance, climbing Yes 05/02/2019 stairs, or had a fall in the last 3 months? Does the patient have difficulty dressing or bathing? No 05/02/2019 Because of a physical, mental, or emotional condition; No 05/02/2019 does this person have difficulty doing errands alone such as visiting a doctor's office or shopping? Cognitive Status Response Date of Assessment Because of a physical, mental, or emotional condition; No 05/02/2019 does this person have serious difficulty concentrating, remembering, or making decisions? documented as of this encounter Discharge Summaries Nicole Yoo MD - 05/08/2019 10:17 AM CDT Hospital Discharge Summary Attending Physician: Nicole Yoo MD Attending Physician Specialty: Adult Hospitalist Admit Date: 05/02/2019 Discharge Date: 05/08/19 Primary Care Physician: FRAN Lopes Discharge Diagnoses Principal Problem: MRSA bacteremia Active Problems: Cellulitis Resolved Problems: * No resolved hospital problems. * Hospital Course Mr. Canseco is a 58 y/o M with uncontrolled diabetes (most recent A1C 9.1%) who presented with L finger cellulitis with concern for infectious tenosynovitis and /or underlying osteomyelitis, then developed an MRSA bacteremia. He had partial amputation and debridement. He was initially covered with vanc and cefepime. PETTY completed to rule out endocarditis. ID followed along and recommended vancomycin infusions bid x 4 weeks. Patient with poor glycemic control, counseled on the importance of aggressive diabetic management as an outpatient. LabTests Pending at Discharge Unresulted Lab Orders (From admission, onward) Start Ordered 05/03/19 0700 CREATININE Every twenty four hours, Timed Rout Start: 05/03/19 0700 End: Until Specified 05/02/192127 Follow-Up Scheduled Contact information for follow-up Arsenio Mares PA Specialty: PA - Orthopedic Surgery [facility] [address] [place] [id number] Next Steps: Follow up Instructions: Incision check appointment on May 16, at 10:30 AM. Reinaldo Oconnell MD Specialty: Orthopedic Surgery [facility] [address] [place] [id number] Next Steps: Follow up Instructions: Follow up appointment on June 13, at 2:00 PM. Preliminary Discharge Medications This list of medications is preliminary and tentative. Please see the After Visit Summary for the final and accurate medication list. Discharge Medication List START taking these medications START: acetaminophen 325 mg tablet Commonly known as: TYLENOL Dose: 650 mg Take 2 tablets (650 mg) by mouth Every 4 hours as needed for mild pain or moderate pain START: gabapentin 300 mg capsule Commonly known as: NEURONTIN Dose: 300 mg Take 1 capsule (300 mg) by mouth every night at bedtime START: hEParin 100 units/mL injection solution Dose: 300 Units Administer 3 mL (300 Units) intravenously As often as necessary for other ( Specify) (heparin 300 units/3 mL IV FLUSH after completion of each antibiotic infusion (after saline flush)) heparin 300 units/3 mL IV FLUSH after completion of each antibiotic infusion (after saline flush) START: oxyCODONE 5 mg tablet (immediate release) Commonly known as: OXY-IR Dose: 5 mg Take 1 tablet (5 mg) by mouth Every 4 hours as needed for severe pain (for pain Scale 4 to 6 or painnot relieved by medications for Pain Scale 1 - 3) START: senna-docusate sodium 8.6-50 MG tablet Commonly known as: SENOKOT-S;PERICOLACE Dose: 2 tablet Take 2 tablets by mouth 2 times a day as needed for constipation START: sodium chloride 0.9% prefilled 10 mL syringe 0.9% Soln Dose: 10 mL Administer 10 mL intravenously As often as necessary for other (Specify) (Flush infusion line beforeeach antibiotic infusion and after each infusion completed) Flush infusion line before each antibiotic infusion and after each infusion completed. Flush line with heparin 300 units/ 3 mL after the last saline flush START: vancomycin (VANCOCIN) 1,000 mg in sodium chloride 0.9% 250 mL Dose: 1000 mg Administer 1,000 mg intravenously Every 12 hours for 23 days CONTINUE taking these medications which have NOT CHANGED CONTINUE: albuterol HFA 108 (90 Base) MCG/ACT inhaler Commonly known as: PROVENTIL,PROAIR,VENTOLIN Inhale orally every 4 to 6 hours as needed Shake well before using. CONTINUE: carVEDilol 12.5 mg tablet Commonly known as: COREG Dose: 12.5 mg Take 1 tablet (12.5 mg) by mouth 2 times a day with meals CONTINUE: furosemide 40 mg tablet Commonly known as: LASIX Take 1.5 tablet(60 mg) in the morning and 1 (40 mg) tablet around 1600 hrs. CONTINUE: glimepiride 2 mg tablet Commonly known as: AMARYL Dose: 6 mg Take 6 mg by mouth 1 time per day CONTINUE: insulin glargine 300 unit/mL subcutaneous injection (pen) Commonly known as: TOUJEO Dose: 20 Units Inject 20 Units subcutaneously 1 time per day CONTINUE: metFORMIN 1000 MG tablet Commonly known as: GLUCOPHAGE Take by mouth 2 times a day CONTINUE: metOLazone 2.5 mg tablet Commonly known as: ZAROXOLYN Dose: 2.5 mg Take 1 tablet (2.5 mg) by mouth 1 time a day as needed (Swelling/weight gain) CONTINUE: omeprazole 20 mg capsule Commonly known as: priLOSEC Dose: 20 mg Take 20 mg by mouth 1 time a day in the morning CONTINUE: simvastatin 10 mg tablet Commonly known as: ZOCOR Take by mouth every night at bedtime CONTINUE: spironolactone 25 mg tablet Commonly known as: ALDACTONE Dose: 25 mg Take 25 mg by mouth 1 time a day in the morning CONTINUE: tamsulosin 0.4 mg capsule Commonly known as: FLOMAX Dose: 0.8 mg Take 2 capsules (0.8 mg) by mouth 1 time per day CONTINUE: VICTOZA 18 mg/3 mL subcutaneous injection solution (pen) Generic drug: liraglutide Inject subcutaneously 1 time per day CONTINUE: XARELTO 20 mg tablet Generic drug: rivaroxaban Dose: 20 mg Take 20 mg by mouth 1 time a day at supper You might also be taking other medications not listed above. If you have questions about any of your other medications, talk to the person who prescribed them or your Primary Care Provider. Where to Get Your Medications These medications were sent to [facility] [address] [place] [address] Prosper LEHMAN [id number] Hours: M-F 7am-11pm, Sat-Sun 7am-10pm gabapentin 300 mg capsule oxyCODONE 5 mg tablet (immediate release) Information about where to get these medications is not yet available Ask your nurse or doctor about these medications acetaminophen 325 mg tablet hEParin 100 units/mL injection solution senna-docusate sodium 8.6-50 MG tablet sodium chloride 0.9% prefilled 10 mL syringe 0.9% Soln vancomycin (VANCOCIN) 1,000 mg in sodium chloride 0.9% 250 mL Temp: 98.2 F (36.8 C) BP: 142/94 Weight: (!) 148.6 kg (327 lb 9.7 oz) SpO2: 97 % Resp: 16 Pulse: 66 Current BMI (>50=increased risk): (!) 45.71 O2 Device: Room Air O2 Flow Rate (L/min): 2 l/min Physical Exam Constitutional: He is oriented to person, place, and time. He appears well- developed and well-nourished. No distress. HENT: Head: Normocephalic and atraumatic. Right Ear: External ear normal. Left Ear: External ear normal. Mouth/Throat: No oropharyngeal exudate. Eyes: EOM are normal. No scleral icterus. Neck: Neck supple. No tracheal deviation present. Cardiovascular: Normal rate, regular rhythm, normal heart sounds and intact distal pulses. No murmur heard. Pulmonary/Chest: Effort normal and breath sounds normal. No respiratory distress. He has no wheezes.He has no rales. Abdominal: Soft. Bowel sounds are normal. He exhibits no distension. There is no tenderness. There is no rebound and no guarding. Musculoskeletal: He exhibits no edema. L hand dressing in place. Neurological: He is alert and oriented to person, place, and time. No cranial nerve deficit. Skin: Skin is warm and dry. No rash noted. He is not diaphoretic. No erythema. Psychiatric: He has a normal mood and affect. Nursing note and vitals reviewed. Procedures Performed and Findings All procedures during admission Procedure(s): PARTIAL AMPUTATION LEFT INDEX FINGER Consultations Obtained HAND SURGERY CONSULT VANCOMYCIN: PHARMACY TO DOSE INFECTIOUS DISEASE CONSULT CASE MANAGEMENT CONSULT INFECTIOUS DISEASE CONSULT DIABETIC EDUCATION PICC LINE PLACEMENT CONSULT PICC LINE PLACEMENT CONSULT Discharge Disposition ADULT Discharge Planning: Home (1, 2) Instructions for after discharge Contact your doctor if you develop a temperature greater than 101 degrees Contact your doctor if you experience increased pain, numbness, or tingling Contact your doctor if you have any questions in the first week Contact your doctor if you notice any drainage from your incision after 48 hours Contact your doctor if you notice any redness or swelling around your incision If you have questions or concerns, please call your orthopedic surgeon at the clinic Keep dressing clean/dry/intact until follow-up appointment May shower - Cover incision with water proof dressing so it doesn't get wet No tub bath until directed Notify provider with any questions or concerns Please call 911 and seek immediate emergency care if you experience any chest pain or shortness of breath or if you are coughing up blood Resume home diet Resume home diet Resume normal activity Weight bearing status - non-weight bearing NWB Left hand Medical Decision Making A total of 35 minutes were spent on discharge coordination. documented in this encounter Discharge Instructions Jahaira Van RN - 05/08/2019 Specifics of antimicrobial therapy are as follows: 1. Antibiotics (with dose, route and Frequency): Vancomycin 1000 mg IV Q 12 2. Total Duration: 4 Weeks 3. Stop Date: 05/31/2019 4. Weekly Labs (to be obtained on Wednesday or Wednesday) : CBC, ALT, Cre, Vancomycin trough 5. Goal trough (if applicable): 10 - 15 or 15-20 6. Please fax lab results to: [phone]. Attn: Yoselin Lopez MD 7. Weekly PICC line dressing changes in [place] 9. Saline and Heparin flushes per protocol 10. PICC line to be removed at the end of IV antibiotic therapy 11. Please contact the number below in case of suspected intolerance or adverse effect related to antimicrobials or IV access. Yoselin Lopez MD Discharge Instructions: Caring for Your Peripherally Inserted Central Catheter ( PICC) You are going home with a peripherally inserted central catheter (PICC). This small, soft tube has been placed in a vein in your arm. It is often used when treatment requires medicines or nutrition forweeks or months. At home, you need to take care of your PICC to keep it working.Because a PICC line has a high infection risk, you must take extra care washing your hands and preventing the spread ofgerms. This sheet will help you remember what to do to care for your PICC at home. Understanding your role A nurse or other healthcare provider will teach you and your caregivers how to care for the PICC.Before leaving the hospital, make sure you understand what to do at home, how long you may need the PICC, and when to have a follow-up visit. You will likely be told to flush the PICC with saline or heparin solution. You may also be told to change the catheters injection caps and change the dressing (bandage). Or, a nurse may do this for you during a follow-up visit. Only do these things if youre told to, following the instructionsyou were given. Protecting the PICC If the PICC gets damaged, it wont work right and could raise your chance of infection. Call your healthcare team right away if any damage occurs. To protect the PICC at home: Prevent infection. Use good hand hygiene by following the guidelines on this sheet. Dont touchthe catheter or dressing unless you need to. And always clean your hands before and after you come in contact with any part of the PICC. Your caregivers, family members, and any visitors should use good hand hygiene, too. Keep the PICC dry. The catheter and dressing must stay dry. Dont take baths, go swimming, use a hot tub, or do other things that could get the PICC wet. Take a sponge bath to avoid getting your catheter wet, unless your healthcare provider tells you otherwise. Ask your provider about the best way to keep your catheter dry when bathing or showering. If the dressing does get wet, change it only if you have been shown how. Otherwise, call your healthcare team right away for help. Avoid damage. Dont use any sharp or pointy objects around the catheter. This includes scissors, pins, knives, razors, or anything else that could cut it or put a hole in it (puncture it). Also, dont let anything pull or rub on the catheter, such as clothing. Watch for signs of problems. Pay attention to how much of the catheter sticks out from your skin.If this changes at all, let your healthcare provider know. Also watch for cracks, leaks, or other damage. If the dressing becomes dirty, loose, or wet, change it (if you have been instructed to). Or call your healthcare team right away. Avoid lowering your chest below your waist. This includes bending at the waist to do things like tying your shoes. When your chest is below your waist, especially for a long time, the catheters internal tip could slip out of place in the vein. Tell your healthcare team if you vomit or have severe coughing. This can also make the catheter slip out of place. Protecting your arm The arm with the PICC is at risk for developing blood clots (thrombosis). This is a serious problem.To help prevent it: As much as possible, use the arm with the PICC in it for normal daily activities. Lack of movement can lead to blood clots. So its important to move your arm as you normally would. Your healthcare team may suggest light arm exercises. Avoid activities or exercises that require major use of your arm, such as sports, unless your healthcare provider says its OK. Avoid any activities that cause mild pain in your arm. Talk to your healthcare team if you have concerns about pain or range of motion. Dont lift anything heavier than 10 pounds with the affected arm. Drink plenty of water. Staying hydrated helps keep clots from forming. Prevent infection with good hand hygiene A PICC can let germs into your body. This can lead to serious and sometimes deadly infections. To prevent infection, its very important that you, your caregivers, and others around you use good handhygiene. This means washing your hands well with soap and water, and cleaning them with an alcohol-based hand gel as directed. Never touch the PICC or dressing without first using one of these methods. To wash your hands with soap and water: Wet your hands with warm water. (Avoid hot water, which can cause skin irritation when you wash your hands often.) Apply enough soap to cover the whole surface of your hands, including your fingers. Rub your hands together vigorously for at least 15 seconds. Make sure to rub the front and back of each hand up to the wrist, your fingers and fingernails, between the fingers, and each thumb. Rinse your hands with warm water. Dry your hands completely with a new, unused paper towel. Dont use a cloth towel or other reusable towel. These can harbor germs. Use the paper towel to turn off the faucet, then throw it away. If youre in a bathroom, also use a paper towel to open the door instead of touching the handle. When you dont have access to soap and water: Use an alcohol-based hand gel to clean your hands.The gel should have at least 60% alcohol. Follow the instructions on the package. Your healthcare team can answer any questions you have about when to use hand gel, or when its better to wash with soap and water. When to seek medical care Call your provider right away if you have any of the following: Pain or burning in your shoulder, chest, back, arm, or leg Fever of 100.4F (38.0C) or higher Chills Signs of infection at the catheter site (pain, redness, drainage, burning, or stinging) Coughing, wheezing, or shortness of breath A racing or irregular heartbeat Muscle stiffness or trouble moving Tightness in your arm, above the catheter site Gurgling noises coming from the catheter The catheter falls out, breaks, cracks, leaks, or has other damage Date Last Reviewed: 04/24/201619994986-6424 [employer]. [address] [place] [address], [place] [address]. All rights reserved. This information is not intended as a substitute for professional medical care. Always follow your healthcare professional's instructions. Central Line Infections Good handwashing helps prevent central line infections. You need a central line as part of your treatment. Its also called a central venous access device(CVAD) or central venous catheter (CVC). A small, soft tube called a catheter is put in a vein that leads to your heart. The central line is used instead of a standard IV (intravenous) line. It does not need to be replaced as often as a standard IV. This means less pain and fewer needlesticks during treatment. But central lines come with a risk of infection. This sheet tells you more about central line infections and what hospitals are doing to prevent them. And it explains how an infection is treated, if one occurs. Types of central lines With a central line, a catheter is inserted into your body through a vein that leads to the large vein near the heart (vena cava). Types of central lines and their risk of infection are listed below. Which type is best for you depends on your needs and your overall health. Your healthcare provider cantell you which type of line you need, and why. Peripherally inserted central catheter (PICC).This is placed in a large vein in the upper arm, or near the bend of the elbow. Subclavian line. Thisis placed in a vein that runs behind the collarbone. Internal jugular line.This is placed into a large vein in the neck. Infection risk is higher than with a PICC or subclavian line, but lower than with a femoral line. Femoral line.This may be placed in a large vein in the groin. This site is generally not usedbecause of an increased risk for infection. Tunneled catheter. This is run through the soft tissue under the skin before it enters a vein. A small cuff helps hold the catheter in place. Both the tunnel and the cuff help prevent infection. This type of catheter may be placed in any of the above locations. Port. This small device is placed completely under the skin on the arm or chest. Its connectedto a catheter that is threaded into the vena cava. Types of infections A central line provides a direct path into your bloodstream. This gives germs possible access into your body. All types of central lines are associated with some risk of infection. Often, the germs that cause a central line infection come from your own skin. There are 2 possible types of infection: Local infection. This can occur where the central line enters your body. Symptoms include redness, pain, or swelling at or near the catheter site, pain or tenderness along the path of the catheter, and drainage from the skin around the catheter. Systemic infection (also called bacteremia). This can occur if germs get into the bloodstream. This is very serious and can be fatal. Symptoms include sudden fever, shaking chills, a racing heartbeat, confusion, change in behavior , and a skin rash. Risk factors for infection Anyone who has a central line can get an infection. Your risk is higher if you: Are in the intensive care unit (ICU). Have a weakened immune system or serious illness. Are receiving bone marrow or chemotherapy. Have the line for an extended time. Have a central line in your neck or groin. How central line infections are treated Treatment depends on the type of central line, how severe the infection is, and your overall health.Your healthcare provider will prescribe antibiotics to fight the infection. The line may also need to be removed. In some cases, the line is flushed with high doses of antibiotics. This may kill the germs causing the infection, so the line doesnt have to be removed. What hospitals do to prevent infection Hospitals have a plan to reduce central line infections. This plan includes: Good hand hygiene. Hospital staff clean their hands before and after touching the line. They washtheir hands with soap and water. Or they use an alcohol-based hand boat cleaner containing at least 60% alcohol. Using sterile practices during placement. The healthcare worker who places the line wears germ-free (sterile) clothing including a long-sleeved gown and gloves. Before the line is placed, your skin is cleaned with an antiseptic solution. During placement, you are fully covered with a large sterile sheet (a sterile drape). Only the spot where the line is placed is exposed. After placement, the sitewhere the line enters the body is covered with a sterile bandage (dressing). Choosing a lower-risk vein. Whenever possible, the line is placed in the vein that's right for your treatment and has the lowest infection risk. Some hospitals use lines coated with an antiseptic toreduce the chance of infection. Checking for infection. The line is checked frequently for infection. It is removed as soon as you no longer need it. What you can do to prevent infection Before you get a central line, ask questions. Find out why you need the line and where it will be placed. Learn what steps the hospital is taking to reduce your infection risk. Once the line has been placed, you, your caretakers, and any visitors can help prevent infection by doing the following: Use good hand hygiene. Wash your hands often with soap and water, and use alcohol-based hand gel as directed. To clean your hands effectively, follow the guidelines on this sheet. Visitors should wash hands well when they arrive and when they leave. Make sure healthcare staff clean their hands. They should use soap and water or an alcohol-based hand boat cleaner before and after checking the line. Dont be afraid to remind them. Keep the line dry. Follow your providers guidelines for showering. If the dressing does get wet, tell your healthcare provider right away. Dont touch the line. Even when your hands are clean, try not to touch the catheter or dressing. Learn the sterile dressing technique. This is important if you will be caring for the line at home. Your provider can show you what to do. Risk for blood clot If a blood clot forms it can block blood flow through the vein where the catheter is placed. Signs of a blood clot include pain or swelling in the neck, face, chest, or arm. If you have any of these symptoms, call your healthcare provider right away. You may need an ultrasound exam to locate the bloodclot and receive treatment with a blood thinner. How to wash your hands To protect the central line from germs, its very important to wash your hands often and clean them well. You and anyone who comes in contact with you should follow these steps: Wet your hands with warm water. (Avoid hot water. It can cause skin irritation when you wash yourhands often.) Apply enough soap to cover the entire surface of your hands, including your fingers. Rub your hands together briskly for at least 15 seconds. Make sure to rub the front and back of each hand up to the wrist, your fingers and fingernails, between the fingers, and each thumb. Rinse your hands with warm water. Dry your hands completely with a new, unused paper towel. Dont use a cloth towel or other reusable towel. These can harbor germs. Use the paper towel to turn off the faucet, then throw it away. If youre in a bathroom, also use a paper towel to open the door instead of touching the handle. Using alcohol-based hand gels When you dont have access to soap and water, alcohol-based hand gels are a good choice for cleaning your hands. The gel should have at least 60% alcohol. Note that some germs can't be killed by alcohol. Your healthcare team can answer any questions you have about when to use hand gel, or when its better to wash with soap and water. Follow these steps: Spread about 1 tablespoon of gel in the palm of one hand. (Check the package for specific guidelines.) Rub your hands together briskly. Clean the backs of your hands, the palms, between your fingers, and up your wrists. Rub until the gel is gone and your hands are completely dry. When to seek medical care Call your healthcare provider right away if you have a central line and develop any of the following: Pain or burning in your shoulder, chest, back, arm, or leg Fever of 100.4F (38.0C) or higher Chills Signs of infection at the catheter site (pain, redness, drainage, burning, or stinging) Coughing, wheezing, or shortness of breath A racing or irregular heartbeat Muscle stiffness or trouble moving Gurgling noises coming from the catheter The catheter falls out, breaks, cracks, leaks, or has other damage Date Last Reviewed: 04/24/201619997977-3135 [employer]. [address] [place] [address], [place] [id number]. All rights reserved. This information is not intended as a substitute for professional medical care. Always follow your healthcare professional's instructions. Problems with your PICC: Wednesday - Wednesday 8am - 6:00pm Call - Ask for PICC Nurse on beeper #[phone] Evenings, Weekends, Holidays My Anthony Nurse - [phone] or Rescue Nurse Call Ask for the Rescue Nurse documented in this encounter Medications at Time of Discharge Medication Sig Dispensed Refills Start Date End Date metOLazone (ZAROXOLYN) Take 1 tablet (2.5 mg) 0 05/08/2019 2.5 mg by mouth 1 time a day tabletIndications: as needed Shortness of breath (Swelling/weight gain) acetaminophen Take 2 tablets (650 0 05/08/2019 (TYLENOL) 325 mg mg) by mouth Every 4 tabletIndications: hours as needed for Cellulitis of left mild pain or moderate upper extremity pain gabapentin (NEURONTIN) Take 1 capsule (300 30 capsule 0 05/08/20192018 300 mg mg) by mouth every capsuleIndications: night at bedtime Diabetic neuropathy (HCC) oxyCODONE (OXY-IR) 5 Take 1 tablet (5 mg) 20 tablet 0 05/08/2019 mg tablet (immediate by mouth Every 4 hours release)Indications: as needed for severe Cellulitis of left pain (for pain Scale 4 upper extremity to 6 or pain not relieved by medications for Pain Scale 1 - 3) senna-docusate sodium Take 2 tablets by 0 05/08/2019 (SENOKOT-S;PERICOLACE) mouth 2 times a day as 8.6-50 MG needed for tabletIndications: constipation Cellulitis of left upper extremity carVEDilol (COREG) Take 1 tablet (12.5 180 tablet 3 04/07/2019 12.5 mg mg) by mouth 2 times a tabletIndications: day with meals Persistent atrial fibrillation (HCC), Dilated cardiomyopathy (HCC) furosemide (LASIX) 40 Take 1.5 tablet(60 mg) 0 03/08/2019 mg tablet in the morning and 1 (40 mg) tablet around 1600 hrs. tamsulosin (FLOMAX) Take 2 capsules (0.8 90 capsule 0 03/08/2019 0.4 mg mg) by mouth 1 time capsuleIndications: per day Benign prostatic hyperplasia with lower urinary tract symptoms, symptom details unspecified insulin glargine Inject 20 Units 0 (TOUJEO) 300 unit/mL subcutaneously 1 time subcutaneous injection per day (pen) glimepiride (AMARYL) 2 Take 6 mg by mouth 1 0 08/30/2018 mg tablet time per day XARELTO 20 MG tablet Take 20 mg by mouth 1 0 08/30/2018 time a day at supper metFORMIN (GLUCOPHAGE) Take by mouth 2 times 0 1000 MG tablet a day omeprazole (PRILOSEC) Take 20 mg by mouth 1 0 20 mg capsule time a day in the morning liraglutide (VICTOZA) Inject subcutaneously 0 18 mg/3 mL 1 time per day subcutaneous injection solution (pen) simvastatin (ZOCOR) 10 Take by mouth every 0 mg tablet night at bedtime spironolactone Take 25 mg by mouth 1 0 (ALDACTONE) 25 mg time a day in the tablet morning albuterol HFA Inhale orally every 4 0 (PROVENTIL,PROAIR,VENT to 6 hours as needed MARYLU) 108 (90 Base) Shake well before MCG/ACT inhaler using. sodium chloride 0.9% Administer 10 mL intravenously As often as necessary for other (Specify) (Flush infusion line before each antibiotic infusion and after each infusion completed) Flush infusion line before each antibiotic infusion and after each infusion completed. 0 05/08/2019 prefilled 10 mL Flush line with heparin 300 units/ 3 mL after the last saline flush syringe 0.9% SOLNIndications: MRSA (methicillin resistant Staphylococcus aureus) septicemia (HCC) hEParin 100 units/mL Administer 3 mL (300 0 05/08/2019 injection Units) intravenously solutionIndications: As often as necessary MRSA (methicillin for other (Specify) resistant (heparin 300 units/3 Staphylococcus aureus) mL IV FLUSH after septicemia (HCC) completion of each antibiotic infusion (after saline flush)) heparin 300 units/3 mL IV FLUSH after completion of each antibiotic infusion (after saline flush) vancomycin (VANCOCIN) Administer 1,000 mg 0 05/08/2019 05/31/2019 1,000 mg in sodium intravenously Every 12 chloride 0.9% 250 hours for 23 days mLIndications: MRSA (methicillin resistant Staphylococcus aureus) septicemia (HCC) documented as of this encounter Progress Notes Yoselin Lopez MD - 05/08/2019 9:13 AM CDTFollowing electronically. PETTY and repeat blood cultures from 05/[address]ICC and transition to Outpatient IV Antimicrobial Therapy (OPAT). Specifics of antimicrobial therapy are as follows: 1. Antibiotics (with dose, route and Frequency): Vancomycin 1000 mg IV Q 12 2. Total Duration: 4 Weeks 3. Stop Date: 05/31/2019 4. Weekly Labs (to be obtained on Wednesday or Wednesday) : CBC, ALT, Cre, Vancomycin trough 5. Goal trough (if applicable): 10 - 15 or 15-20 6. Please fax lab results to: [phone]. Attn: Yoselin Lopez MD 7. Weekly PICC line dressing changes in [place] 9. Saline and Heparin flushes per protocol 10. PICC line to be removed at the end of IV antibiotic therapy 11. Please contact the number below in case of suspected intolerance or adverse effect related to antimicrobials or IV access. Yoselin Lopez MD NETVoDoe ingram PA-C - 05/07/2019 8:33 AM CDT Orthopedic Daily Progress Note: Assessment: Darwin Canseco is a 58yr old male 4 Days Post-Op, S/P: Procedure( s): PARTIAL AMPUTATION LEFT INDEX FINGER Subjective: Doing well. Pain controlled. Sitting up in bed eating breakfast. No issues. Objective: Current Vital Signs Temp: 97.6 F (36.4 C) BP: 129/90 Pulse: 68 O2 Device: Room Air O2 Flow Rate (L/min): 2 l/min Resp: 16 Pain Ratin (out of 10) Weight: (!) 148.6 kg (327 lb 9.7 oz) SpO2: 96 % Maximum Temperatures (last 24 hours) Temperature Maximum Max Temp 98.7 F (37.1 C) Dressing and incision clean, dry and intact. Neurovascular intact. Lab Results Component Value Date HEMOGLOBIN 9.9 (L) 05/03/2019 Cultures grew MRSA. Repeat cultures pending. Lab Results Component Value Date INR 1.3 (L) 05/02/2019 PT 16.0 (H) 05/02/2019 Plan: Continue Care, Pain Meds, and ATB's with Cefipime/Vanco. Planning to d/c to care facility in [place] to received outpatient ATB's on Wednesday. Binta Garcia, [facility] - 05/06/2019 8:22 PM CDT Mr. Canseco continues on Vancomycin per pharmacy protocol for severe finger infection. The patient is on day 5 of receiving Vancomycin and current dose is (dose/ interval):1.5gm every 18 hours. Labs: WBC Date/Time Value Ref Range Status 05/03/2019 05:42 AM 13.2 (H) 4.0 - 11.0 K/uL Final 05/02/2019 07:45 PM 15.5 (H) 4.0 - 11.0 K/uL Final 03/08/2019 05:48 AM 10.3 4.0 - 11.0 K/uL Final 03/07/2019 04:01 AM 11.1 (H) 4.0 - 11.0 K/uL Final 01/16/2019 9.1 Final Lab Results Component Value Date CREATSERUM 0.93 05/06/2019 CREATSERUM 0.82 05/05/2019 CREATSERUM 0.96 05/04/2019 Vancomycin Trough Date/Time Value Ref Range Status 05/06/2019 05:26 PM 11.1 10.0 - 20.0 ug/mL Final Cultures: Lab Results Component Value Date CULTGROWTH No Growth - Will continue to monitor for 5 days. 05/04/2019 Max Temperature: Temp (24hrs), Av.9 F (36.6 C), Min:97.8 F (36.6 C) , Max:98.1 F (36.7 C) Estimated CrCl: Estimated Creatinine Clearance: 92.2 mL/min (based on SCr of 0.93 mg/dL). ml/min Intake/Output: Intake/Output Summary (Last 24 hours) at 05/06/20192021 Last data filed at 05/06/2019 1932 Gross per 24 hour Intake 977 ml Output 0 ml Net 977 ml Other Active Antimicrobials: Antibiotics (From admission, onward) Start Stop Route Frequency Ordered 05/05/19 0600 vancomycin (VANCOCIN) 1,500 mg in sodium chloride 0.9% 250 mL ( Locked) Status: Discontinued 05/04 1342 IV Every eighteen hours 05/04/19 1335 05/05/19 0600 vancomycin (VANCOCIN) 1,500 mg in sodium chloride 0.9% 250 mL ( Locked) -- IV Every eighteen hours 05/04/19 1343 05/05/19 0000 vancomycin (VANCOCIN) 1,500 mg in sodium chloride 0.9% 250 mL ( Locked) Status: Discontinued 05/04 1343 IV Every twelve hours 05/04/19 1342 05/02/19 2300 vancomycin (VANCOCIN) 1,500 mg in sodium chloride 0.9% 250 mL ( Locked) Status: Discontinued 05/04 1335 IV Every twelve hours 05/02/19 2108 05/02/19 2100 cefepime (MAXIPIME) 2000 mg/20 mL in sterile water IV syringe & amp;nbsp; -- IV Every twelve hours 05/02/19 1953 Assessment/Plan: The trough level is within the desired goal of 10-15 mg/L. Vancomycin will be continued at current dose/interval. Pharmacy will continue to monitor per the pharmacokinetic service policy. Binta Albrecht, Pharm.D Evelia Montejo PA-C - 05/06/2019 11:33 AM CDT ORTHOPAEDIC POST OPERATIVE PROGRESS NOTE May 06, 2019 3 Days Post-Op Status Post: Procedure(s): PARTIAL AMPUTATION LEFT INDEX FINGER S: Darwin Canseco is a 58yr male is recovering from surgery. denies of CP, SOB, N/V, Fever or Chills. Patient states that pain is controlled and he is working with OT. He is tolerating food. O: BP 137/86 | Pulse 77 | Temp 98 F (36.7 C) | Resp 16 | Ht 180.3 cm (71 ") | Wt (!) 148.6 kg (327 lb 9.7 oz) | SpO2 96% | BMI 45.69 kg/m Neurovascularly Intact left Warm perfused hand Brisk cap refill Lab Results Component Value Date INR 1.3 (L) 05/02/2019 A/P: 1. Status Post: Disposition/Planning: Continue cares and pain control. Continue abx. 2. Acute Blood loss Anemia: Expected- stable Lab Results Component Value Date HEMOGLOBIN 9.9 (L) 05/03/2019 Evelia España PA-C [facility] Pager: [phone] signed by Evelia España PA-C at 2018 11:35 AM Robert Shipman MD - 05/06/2019 10:31 AM CDT Internal Medicine Progress Note Patient Name: Darwin Canseco Admit Date: 05/02/2019 CSN: [id number] Summary: Darwin Canseco is a 58yr male that was admitted with left finger cellulitis with concern for infectious tenosynovitis and/or underlying osteomyelitis. Blood cultures grew MRSA. Day: 4 Interval Hx/ROS: PETTY yesterday clean for vegetations. Continue on IV antibiotics. Awaiting clear blood cultures before placing PICC line. Probably wait until Wednesday for PICC unless repeats come back positive then we need to wait longer for more repeats. Impression/Plan: 1. Severe left finger cellulitis with concern for infectious tenosynovitis and/ or underlying osteomyelitis - Vancomycinand Cefepime - Blood cultures growing MRSA; Repeats are pending; follow operative cultures as well - ID following 2. Chronic A.fib, on chronic anticoagulation, rate controlled - Hold Xarelto. Last dose 04/30/19; restart post-op when cleared by surgery - Carvedilol 12.5 mg BID Chronic systolic CHF (EF 40%): hold Lasix, Spironolactone, Metolazone given that patient will be NPO; continue Carvedilol; hold Lisinopril in anticipation of possible orthopedic procedure; can restart 05/04 post-op HLD: continue Simvastatin Diabetes mellitus, type 2 (Hgb A1C 9.1%): continue Levemir at decreased dose of 17 units at bedtime (home dose: 34 units) due to NPO status; start SSI; hold Metformin, Glimepiride, Victoza BPH: continue Flomax GERD: continue Omeprazole Morbid obesity: BMI 45.69 DVT Prophylaxis: SCDs until after surgery Code status: Full Code Current Vital Signs Temp: 98 F (36.7 C) BP: 137/86 Pulse: 77 O2 Device: Room Air O2 Flow Rate (L/min): 2 l/min Resp: 16 Pain Ratin (out of 10) Weight: (!) 148.6 kg (327 lb 9.7 oz) SpO2: 96 % 24 hour Intake/Output 05/05 700 - 05/06 0659 In: 2039 [Oral:780] Out: - Physical Exam: General: Awake, alert and not in distress RS: CTA, no crackles, no wheezes CVS: Normal Rate, RR, Normal S1S2, no murmurs GI: Normal BS, soft, nondistended, non tender NS: Alert, oriented, normal speech MSK: No pedal edema; +left finger surgical wrap Lines and Drains Patient Lines/Drains/Airways Status Active Lines Name: Placement date: Placement time: Site: Days: Incision 05/03/19 Anterior;Left;2nd Finger (Comment which one) Incision 1340 Finger (Comment which one) 2 Diagnostics and Labs All Reports, Vitals, Nursing Notes, pertinent Imaging and Labs Reviewed. No Known Allergies Robert Nair M.D. Department of Internal Medicine Hospitalist Group 10: 32 AM Art Carbone PA - 05/05/2019 11:00 AM CDT ORTHOPAEDIC POST-OPERATIVE PROGRESS NOTE 05/05/2019 POD # 2 Left partial index finger amputation Patient of Dr. Oconnell S: Darwindoreen Canseco is a 58yr male. Patient currently reports of 0 out of 10 pain. States that will have intermittent in sharp pains, but thinks that is more from diabetic neuropathy. Patient was transferred [facility] to [facility] for transesophageal echocardiogram. Denies any fevers or chills. Denies chest pain, difficulty breathing, nausea, vomiting and abdominal pain. Denies any numbness and any other digits of the left hand. O: Temp Readings from Last 1 Encounters: 05/05/19 98.4 F (36.9 C) BP Readings from Last 1 Encounters: 05/05/19 108/83 Pulse Readings from Last 1 Encounters: 05/05/19 80 Gen: Appears comfortable lying in bed, lying flat. Obese. No acute distress. Alert and oriented. Incision: No strikethrough drainage. Dressing C/D/I. left HAND: Partial amputation of the left index finger present. No significant tenderness to palpation. Warm, well perfused. Compartments are the hand are compressible. Sensations grossly intact to light touch over the full her surfaces of the other 4 digits. Motor is grossly intact of the other digits able to flex/extend fingers with full range of motion. Able to give thumbs up, make okay sign with thumb and middle finger. Cap refill is brisk in all remaining fingers. Radial pulses palpable. Lab Results Component Value Date WBC 13.2 (H) 05/03/2019 NUCRBC 0 05/02/2019 RBC 3.71 (L) 05/03/2019 HEMOGLOBIN 9.9 (L) 05/03/2019 HEMATOCRIT 31.9 (L) 05/03/2019 MCV 86.0 05/03/2019 MCH 26.7 05/03/2019 MCHC 31.0 (L) 05/03/2019 RDW 44.3 01/16/2019 PLTCOUNT 232 05/03/2019 NEUTROPCT 79.1 05/02/2019 LYMPHSPCT 9.9 05/02/2019 MONOSPCT 9.5 05/02/2019 EOSPCT 1.2 05/02/2019 BASOPHILPCT 0.3 05/02/2019 Lab Results Component Value Date INR 1.3 (L) 05/02/2019 A/P: 1. s/p Left partial index finger amputation: Pain control: Continue current regimen Wound care: Change dressing tomorrow. PT/OT: continue; nonweightbearing left hand Activity: as tolerated; Disposition/planning: continue cares; Per Ortho, clear for discharge to appropriate setting when available and medically stable. Follow up: 2 weeks with JANUSZ and [address] Oconnell 2. Acute Blood loss Anemia: Expected Art Coello Pa-C Robert Shipman MD - 05/05/2019 9:35 AM CDT Internal Medicine Progress Note Patient Name: Darwin Canseco Admit Date: 05/02/2019 CSN: [id number] Summary: Darwin Canseco is a 58yr male that was admitted with left finger cellulitis with concern for infectious tenosynovitis and/or underlying osteomyelitis. Blood cultures grew MRSA. Day: 3 Interval Hx/ROS: No overnight events. Repeat blood cultures pending. VSS. Continues on IV vancomycin and cefepime. PETTY scheduled for today. Impression/Plan: 1. Severe left finger cellulitis with concern for infectious tenosynovitis and/ or underlying osteomyelitis - Vancomycinand Cefepime - Blood cultures growing MRSA; Repeats are pending; follow operative cultures as well - ID following 2. Chronic A.fib, on chronic anticoagulation, rate controlled - Hold Xarelto. Last dose 04/30/19; restart post-op when cleared by surgery - Carvedilol 12.5 mg BID Chronic systolic CHF (EF 40%): hold Lasix, Spironolactone, Metolazone given that patient will be NPO; continue Carvedilol; hold Lisinopril in anticipation of possible orthopedic procedure; can restart 05/04 post-op HLD: continue Simvastatin Diabetes mellitus, type 2 (Hgb A1C 9.1%): continue Levemir at decreased dose of 17 units at bedtime (home dose: 34 units) due to NPO status; start SSI; hold Metformin, Glimepiride, Victoza BPH: continue Flomax GERD: continue Omeprazole Morbid obesity: BMI 45.69 DVT Prophylaxis: SCDs until after surgery Code status: Full Code Current Vital Signs Temp: 98.8 F (37.1 C) BP: 117/91 Pulse: 86 O2 Device: Room Air O2 Flow Rate (L/min): 1 l/min Resp: 16 Pain Ratin (out of 10) Weight: (!) 148.6 kg (327 lb 9.7 oz) SpO2: 94 % 24 hour Intake/Output 05/04 0700 - 05/05 0659 In: 2850 [Oral:1210] Out: 700 [Urine:700] Physical Exam: General: Awake, alert and not in distress RS: CTA, no crackles, no wheezes CVS: Normal Rate, RR, Normal S1S2, no murmurs GI: Normal BS, soft, nondistended, non tender NS: Alert, oriented, normal speech MSK: No pedal edema; +left finger surgical wrap Lines and Drains Patient Lines/Drains/Airways Status Active Lines Name: Placement date: Placement time: Site: Days: Peripheral IV 05/03/19 Forearm Right;Top;Posterior 05/03/19 2242 Forearm 1 Incision 05/03/19 Anterior;Left;2nd Finger (Comment which one) Incision 1340 Finger (Comment which one) 1 Diagnostics and Labs All Reports, Vitals, Nursing Notes, pertinent Imaging and Labs Reviewed. No Known Allergies Robert Nair M.D. Department of Internal Medicine Hospitalist Group 9: 36 AM CDTYoselin Lopez MD - 05/04/2019 3:44 PM CDT INFECTIOUS DISEASES INPATIENT PROGRESS NOTE 05/04/2019 DIAGNOSIS: #1 Left index finger osteomyelitis #2 MRSA septicemia secondary to #1 #3 Multiple other medical comorbidities contributing to and complicating the primary diagnosis - DM2, CHF, A fib etc. ASSESSMENT, PLAN AND RECOMMENDATIONS The patient's blood cultures have grown MRSA. This will change his management significantly. He will need a transesophageal echocardiogram which is being scheduled for tomorrow. Repeat blood cultures have been taken. I anticipate at least a 4-week course of IV vancomycin. He will need a PICC linefor that. I discussed with the patient that we will have to hold off on PICC line placement until we have negative blood cultures. So he will likely be going home on Wednesday. He is eligible for home IV infusions. Discussed with patient, his family as well as primary service. I will continue to follow. Discussed with patient and primary service. I will continue to follow. 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 He is currently on treatment with Vancomycin and Piperacillin / tazobactam. INTERVAL HISTORY: The patient is now seen in follow-up. No new overnight events. Tolerating antibiotics. No new rash or fever. No diarrhea. REVIEW OF SYSTEMS: Pertinent positives and negatives as outlined in Interval History. Rest negative MEDICATIONS: Reviewed in EMR PHYSICAL EXAM Vital Signs: BP: 129/85; Pulse: 59; Temp: 97.8 F (36.6 C); Resp: 16; SpO2: 96 %;O2 Device: Room Air O2 Flow Rate (L/min): 1 l/min; Maximum Temperatures (last 24 hours) Temperature Maximum Max Temp 99.3 F (37.4 C) General: No acute distress Skin: No new rashes or lesions Chest: Clear to auscultation Cardiovascular: Regular rate and rhythm. No murmurs, rubs or gallop Abdomen: Soft and non tender. No organomegaly Musculoskeletal: No large joint swelling, tenderness or redness Neurological: Alert and oriented x 3. No gross motor deficits REVIEW AND INTERPRETATION OF LAB AND IMAGING DATA: Microbiology: Blood Cultures - 05/02 - MRSA Lab Results Component Value Date WBC 13.2 (H) 05/03/2019 HEMOGLOBIN 9.9 (L) 05/03/2019 PLTCOUNT 232 05/03/2019 CREATSERUM 0.96 05/04/2019 ALKPHOS 93 05/02/2019 AST 11 05/02/2019 ALT 8 05/02/2019 VANCOTROUGH 18.8 05/04/2019 Antonia Judge, PHARM D - 05/04/2019 1:36 PM CDT Pharmacy Vancomycin Kinetics Note Mr. Lares continues on Vancomycin per pharmacy protocol for finger infection. The patient is on day 3 of receiving Vancomycin and current dose is (dose/ interval): 1.5gm IV q12hrs. Labs: WBC Date/Time Value Ref Range Status 05/03/2019 05:42 AM 13.2 (H) 4.0 - 11.0 K/uL Final 05/02/2019 07:45 PM 15.5 (H) 4.0 - 11.0 K/uL Final 03/08/2019 05:48 AM 10.3 4.0 - 11.0 K/uL Final 03/07/2019 04:01 AM 11.1 (H) 4.0 - 11.0 K/uL Final 01/16/2019 9.1 Final Lab Results Component Value Date CREATSERUM 0.96 05/04/2019 CREATSERUM 0.98 05/03/2019 CREATSERUM 0.98 05/03/2019 Vancomycin Trough Date/Time Value Ref Range Status 05/04/2019 11:32 AM 18.8 10.0 - 20.0 ug/mL Final Cultures: Lab Results Component Value Date CULTGROWTH Many Staphylococcus aureus (!) 05/03/2019 Max Temperature: Temp (24hrs), Av.7 F (36.5 C), Min:95.5 F (35.3 C) , Max:99.3 F (37.4 C) Estimated CrCl: Estimated Creatinine Clearance: 89.3 mL/min (based on SCr of 0.96 mg/dL). ml/min Intake/Output: Intake/Output Summary (Last 24 hours) at 05/04/2019 1336 Last data filed at 05/04/2019 0700 Gross per 24 hour Intake 1445 ml Output 1050 ml Net 395 ml Other Active Antimicrobials: Antibiotics (From admission, onward) Start Stop Route Frequency Ordered 05/05/19 0600 vancomycin (VANCOCIN) 1,500 mg in sodium chloride 0.9% 250 mL ( Locked) -- IV Every eighteen hours 05/04/19 1335 05/02/19 2300 vancomycin (VANCOCIN) 1,500 mg in sodium chloride 0.9% 250 mL ( Locked) Status: Discontinued 05/04 1335 IV Every twelve hours 05/02/19 2108 05/02/19 2100 cefepime (MAXIPIME) 2000 mg/20 mL in sterile water IV syringe & amp;nbsp; -- IV Every twelve hours 05/02/19 195 Assessment/Plan: The trough level is higher than the desired goal of 10-15 mg/L. Vancomycin will be changed to 1.5gm IV q18hr dose/interval. Pharmacy will continue to monitor per the pharmacokinetic service policy. SERENITY Whyte Robert Shipman MD - 05/04/2019 11:04 AM CDT Internal Medicine Progress Note Patient Name: Darwin Canseco Admit Date: 05/02/2019 CSN: [id number] Summary: Darwin Canseco is a 58yr male that was admitted with left finger cellulitis with concern for infectious tenosynovitis and/or underlying osteomyelitis. Day: 2 Interval Hx/ROS: Surgery went well yesterday. No post-op complications. Blood cultures came back with MRSA. Repeats ordered. Discussed with ID. We'll get a PETTY done to assess for vegetations and proceed from there. If negative he can come back to [facility]. Patient medically stable for transport to and from campus for PETTY. Impression/Plan: 1. Severe left finger cellulitis with concern for infectious tenosynovitis and/ or underlying osteomyelitis - Vancomycinand Cefepime - Blood cultures growing MRSA; Repeats are pending; follow operative cultures as well - ID following 2. Chronic A.fib, on chronic anticoagulation, rate controlled - Hold Xarelto. Last dose 04/30/19; restart post-op when cleared by surgery - Carvedilol 12.5 mg BID Chronic systolic CHF (EF 40%): hold Lasix, Spironolactone, Metolazone given that patient will be NPO; continue Carvedilol; hold Lisinopril in anticipation of possible orthopedic procedure; can restart 05/04 post-op HLD: continue Simvastatin Diabetes mellitus, type 2 (Hgb A1C 9.1%): continue Levemir at decreased dose of 17 units at bedtime (home dose: 34 units) due to NPO status; start SSI; hold Metformin, Glimepiride, Victoza BPH: continue Flomax GERD: continue Omeprazole Morbid obesity: BMI 45.69 Total time spent in care of this patient 35 minutes with greater than 50 percent of the time spent in counseling and coordination of care as described above alongside reviewing chart, discussing with nursing, phone calls, reviewing labs, and imaging. DVT Prophylaxis: SCDs until after surgery Code status: Full Code Current Vital Signs Temp: 99.3 F (37.4 C) BP: 135/115 Pulse: 71 O2 Device: Room Air O2 Flow Rate (L/min): 1 l/min Resp: 16 Pain Rating: Other (specify)(Sleeping) (out of 10) Weight: (!) 148.6 kg (327 lb 9.7 oz) SpO2: 96 % 24 hour Intake/Output 05/03 700 - 05/04 0659 In: 1465 [Oral:460] Out: 1750 [Urine:1750] Physical Exam: General: Awake, alert and not in distress RS: CTA, no crackles, no wheezes CVS: Normal Rate, RR, Normal S1S2, no murmurs GI: Normal BS, soft, nondistended, non tender NS: Alert, oriented, normal speech MSK: No pedal edema; +left finger surgical wrap Lines and Drains Patient Lines/Drains/Airways Status Active Lines Name: Placement date: Placement time: Site: Days: Peripheral IV 05/03/19 Forearm Right;Top;Posterior 05/03/19 2242 Forearm less than 1 Wound (full version available in flowsheet #[id number]) 05/02/19 Anterior;Left Finger (Comment which one) 05/02/19 1805 Finger (Comment which one) 1 Incision 05/03/19 Anterior;Left;2nd Finger (Comment which one) Incision 1340 Finger (Comment which one) less than 1 Diagnostics and Labs All Reports, Vitals, Nursing Notes, pertinent Imaging and Labs Reviewed. No Known Allergies Robert Nair M.D. Department of Internal Medicine Hospitalist Group 11: 20 AM Robert Shipman MD - 05/03/2019 10:47 AM CDT Internal Medicine Progress Note Patient Name: Darwin Canseco Admit Date: 05/02/2019 CSN: [id number] Summary: Darwin Canseco is a 58yr male that was admitted with left finger cellulitis with concern for infectious tenosynovitis and/or underlying osteomyelitis. Day: 0 Interval Hx/ROS: No significant overnight events. Planning surgery this afternoon. Remains on IV antibiotics. Pain tolerable. No lightheadedness, dyspnea, constipation or urinary difficulties. Impression/Plan: 1. Severe left finger cellulitis with concern for infectious tenosynovitis and/ or underlying osteomyelitis - Vancomycinand Cefepime - Blood cultures pending; follow operative cultures as well 2. Chronic A.fib, on chronic anticoagulation, rate controlled - Hold Xarelto. Last dose 04/30/19; restart post-op when cleared by surgery - Carvedilol 12.5 mg BID Chronic systolic CHF (EF 40%): hold Lasix, Spironolactone, Metolazone given that patient will be NPO; continue Carvedilol; hold Lisinopril in anticipation of possible orthopedic procedure; can restart 05/04 post-op HLD: continue Simvastatin Diabetes mellitus, type 2 (Hgb A1C 9.1%): continue Levemir at decreased dose of 17 units at bedtime (home dose: 34 units) due to NPO status; start SSI; hold Metformin, Glimepiride, Victoza BPH: continue Flomax GERD: continue Omeprazole Morbid obesity: BMI 45.69 DVT Prophylaxis: SCDs until after surgery Code status: Full Code Current Vital Signs Temp: 98.2 F (36.8 C) BP: 109/62 Pulse: 65 O2 Device: Room Air Resp: 16 Pain Ratin (out of 10) Weight: (!) 148.6 kg (327 lb 9.7 oz) SpO2: 96 % 24 hour Intake/Output 05/02 0700 - 05/03 0659 In: - Out: 800 [Urine:800] Physical Exam: General: Awake, alert and not in distress RS: CTA, no crackles, no wheezes CVS: Normal Rate, RR, Normal S1S2, no murmurs GI: Normal BS, soft, nondistended, non tender NS: Alert, oriented, normal speech MSK: No pedal edema; +left finger surgical wrap Lines and Drains Patient Lines/Drains/Airways Status Active Lines Name: Placement date: Placement time: Site: Days: Peripheral IV 05/02/19 Forearm Right 05/02/19 1826 Forearm less than 1 Wound (full version available in flowsheet #[id number]) 05/02/19 Anterior;Left Finger (Comment which one) 05/02/19 1805 Finger (Comment which one) less than 1 Diagnostics and Labs All Reports, Vitals, Nursing Notes, pertinent Imaging and Labs Reviewed. No Known Allergies Robert Nair M.D. Department of Internal Medicine Hospitalist Group 10: 52 AM JOANNETCVladimir stern, PHARM D - 05/02/2019 9:09 PM CDT Vancomycin Initial Consult Note Mr. Canseco was admitted on 05/02/2019 and today has been initiated on Vancomycin per pharmacy protocol. Labs: No results found for: CESARIO WBC Date/Time Value Ref Range Status 05/02/2019 07:45 PM 15.5 (H) 4.0 - 11.0 K/uL Final 01/16/2019 9.1 Final Lab Results Component Value Date CREATSERUM 1.13 05/02/2019 Max Temperature: Temp (24hrs), Av.4 F (37.4 C), Min:98.9 F (37.2 C) , Max:99.9 F (37.7 C) Estimated CrCl: Estimated Creatinine Clearance: 75.9 mL/min (based on SCr of 1.13 mg/dL). ml/min Intake/Output: No intake or output data in the 24 hours ending 05/02/192109 Other Active Antimicrobial Agents: Plan: We have initiated intravenous Vancomycin therapy at a dose of 1.5gm every 12 hours. The goal troughrange will be 10-15mcg/ml. Pharmacy will monitor and if indicated, adjust dose and/or frequency per the Pharmacy and Therapeutics Committee approved pharmacokinetic service policy. Thank you very much for the consult. We will continue to follow along with you. Vladimir Wynn, PHARM D documented in this encounter Plan of Treatment Date Type Specialty Care Team Description 05/16/2019 Office Visit Orthopedics Robert Nair MD [address] [place] [address] [phone] Arsenio Mares PA [address] [place] [address] [phone] 06/05/2019 Office Visit CARDIOLOGY Loki Tucker MD [address] [place] [address] [phone] 06/13/2019 Office Visit Orthopedics Reinaldo Oconnell MD [address] [facility] [place] [address] [phone] Name Priority Associated Diagnoses Date/Time TISSUE EXAM Routine Diabetic neuropathy (HCC) 05/03/2019 1:35 PM CDT CULTURE, BLOOD WHITNEY 05/04/2019 11:46 AM CDT CULTURE, BLOOD WHITNEY 05/04/2019 11:36 AM CDT Name Priority Associated Diagnoses Order Schedule CREATININE Timed Routine every 24 hours until discontinued starting 05/03/2019, 6 completed TISSUE EXAM Routine Diabetic neuropathy (HCC) ONCE for 1 Occurrences starting 05/03/2019, 1 completed documented as of this encounter Procedures Procedure Name Priority Date/Time Associated Comments Diagnosis XRAY CHEST PORTABLE WHITNEY 05/08/2019 2:18 Results for this PM CDT procedure are in the results section. GLUCOSE BY METER, POCT Routine 05/08/2019 1:21 Results for this PM CDT procedure are in the results section. GLUCOSE BY METER, POCT Routine 05/08/2019 7:33 Results for this AM CDT procedure are in the results section. COLLECT AND HOLD Routine 05/08/2019 5:34 Results for this LAVENDER (EDTA) TOP AM CDT procedure are in TUBE the results section. CREATININE Timed Routine 05/08/2019 5:34 Results for this AM CDT procedure are in the results section. GLUCOSE BY METER, POCT Routine 05/07/2019 8:20 Results for this PM CDT procedure are in the results section. GLUCOSE BY METER, POCT Routine 05/07/2019 6:47 Results for this PM CDT procedure are in the results section. GLUCOSE BY METER, POCT Routine 05/07/2019 12:36 Results for this PM CDT procedure are in the results section. GLUCOSE BY METER, POCT Routine 05/07/2019 7:55 Results for this AM CDT procedure are in the results section. CREATININE Timed Routine 05/07/2019 6:23 Results for this AM CDT procedure are in the results section. GLUCOSE BY METER, POCT Routine 05/06/2019 9:40 Results for this PM CDT procedure are in the results section. GLUCOSE BY METER, POCT Routine 05/06/2019 6:38 Results for this PM CDT procedure are in the results section. VANCOMYCIN TROUGH Timed Routine 05/06/2019 5:26 Results for this PM CDT procedure are in the results section. GLUCOSE BY METER, POCT Routine 05/06/2019 1:07 Results for this PM CDT procedure are in the results section. GLUCOSE BY METER, POCT Routine 05/06/2019 7:47 Results for this AM CDT procedure are in the results section. CREATININE Timed Routine 05/06/2019 6:42 Results for this AM CDT procedure are in the results section. GLUCOSE BY METER, POCT Routine 05/05/2019 9:50 Results for this PM CDT procedure are in the results section. GLUCOSE BY METER, POCT Routine 05/05/2019 6:35 Results for this PM CDT procedure are in the results section. GLUCOSE BY METER, POCT Routine 05/05/2019 11:55 Results for this AM CDT procedure are in the results section. ECHO TRANSESOPHAGEAL Routine 05/05/2019 9:15 Results for this AM CDT procedure are in the results section. COLLECT AND HOLD Routine 05/05/2019 6:29 Results for this LAVENDER (EDTA) TOP AM CDT procedure are in TUBE the results section. CREATININE Timed Routine 05/05/2019 6:29 Results for this AM CDT procedure are in the results section. GLUCOSE BY METER, POCT Routine 05/05/2019 5:33 Results for this AM CDT procedure are in the results section. GLUCOSE BY METER, POCT Routine 05/04/2019 9:46 Results for this PM CDT procedure are in the results section. GLUCOSE BY METER, POCT Routine 05/04/2019 5:27 Results for this PM CDT procedure are in the results section. GLUCOSE BY METER, POCT Routine 05/04/2019 12:03 Results for this PM CDT procedure are in the results section. VANCOMYCIN TROUGH Timed Routine 05/04/2019 11:32 Results for this AM CDT procedure are in the results section. GLUCOSE BY METER, POCT Routine 05/04/2019 7:17 Results for this AM CDT procedure are in the results section. CREATININE Timed Routine 05/04/2019 6:37 Results for this AM CDT procedure are in the results section. GLUCOSE BY METER, POCT Routine 05/03/2019 9:55 Results for this PM CDT procedure are in the results section. GLUCOSE BY METER, POCT Routine 05/03/2019 4:02 Results for this PM CDT procedure are in the results section. GLUCOSE BY METER, POCT Routine 05/03/2019 2:16 Results for this PM CDT procedure are in the results section. RELEASE TRIGGER FINGER 05/03/2019 1:40 Diabetic PM CDT neuropathy (HCC) CULTURE BACTERIAL, Routine 05/03/2019 1:32 Diabetic Results for this OTHER WITH GRAM STAIN PM CDT neuropathy (HCC) procedure are in the results section. CULTURE BACTERIAL, Routine 05/03/2019 1:32 Diabetic Results for this ANAEROBE PM CDT neuropathy (HCC) procedure are in the results section. GLUCOSE BY METER, POCT Routine 05/03/2019 12:09 Results for this PM CDT procedure are in the results section. GLUCOSE BY METER, POCT Routine 05/03/2019 8:29 Results for this AM CDT procedure are in the results section. COMPLETE BLOOD COUNT Routine 05/03/2019 5:42 Results for this WITHOUT DIFFERENTIAL AM CDT procedure are in the results section. CREATININE Timed Routine 05/03/2019 5:42 Results for this AM CDT procedure are in the results section. BASIC METABOLIC PANEL Routine 05/03/2019 5:42 Results for this AM CDT procedure are in the results section. GLUCOSE BY METER, POCT Routine 05/02/2019 7:52 Results for this PM CDT procedure are in the results section. LAB ONLY-GRAM POSITIVE Routine 05/02/2019 7:45 Results for this BLOOD CULTURE ID BY PM CDT procedure are in NAD the results section. LAB ONLY-COMPLETE WHITNEY 05/02/2019 7:45 Results for this BLOOD COUNT WITH PM CDT procedure are in DIFFERENTIAL the results section. CULTURE, BLOOD STAT 05/02/2019 7:45 Results for this PM CDT procedure are in the results section. CULTURE, BLOOD STAT 05/02/2019 7:45 Results for this PM CDT procedure are in the results section. PROTIME/INR Routine 05/02/2019 7:45 Results for this PM CDT procedure are in the results section. C-REACTIVE PROTEIN WHITNEY 05/02/2019 7:45 Results for this (INFLAMMATION) PM CDT procedure are in the results section. COMPREHENSIVE Routine 05/02/2019 7:45 Results for this METABOLIC PANEL PM CDT procedure are in the results section. COMPLETE BLOOD COUNT WHITNEY 05/02/2019 7:45 Results for this WITH DIFFERENTIAL PM CDT procedure are in the results section. documented in this encounter Results XRAY CHEST PORTABLE - (05/08/2019 2:18 PM CDT) Specimen Narrative Performed At [facility] Patient Name: DARWIN CANSECO Date of :1960 Procedure: XRAY CHEST PORTABLE Date of Service: 05/08/2019 EXAM: XRAY CHEST PORTABLE INDICATION: Male,58 yearspatient, Pt in A-fib.Unable to identify PICC tip via ECG tip confirmation system.PICC is in.Please do a PCXR for PICC tip verification.Pt is going home soon. COMPARISON(S): Chest x-ray 03/06/2019 TECHNIQUE: AP portable view FINDINGS: Support Devices: There is a right side PICC which terminates in the mid SVC. Lungs/pleura: The lungs are expanded.The lungs are clear. There is no pneumothorax on either side. Both costophrenic angles are sharp. Heart/mediastinum/vasculature: There is moderate cardiomegaly.Normal mediastinum and sj. There is mild prominence of the pulmonary hilar arteries and peripheral pulmonary arteries, consistent with congestive heart failure (CHF).Normal visualized aortic arch and descending thoracic aorta. Osseous: Normal visualized thoracic spine.Normal visualized ribs, clavicles, and shoulders. IMPRESSION: 1. Moderate cardiomegaly and mild pulmonary vascular congestion.Satisfactorily positioned support devices. Finalized by: Kiara Arreola MD on 05/08/2019 3:18 PM CDT Patient/Procedure Information: [facility] MRN/WU: [id number] Order Number: [id number] Accession Number: [id number] Ordering Provider: YOSELIN LOPEZ Authorizing Provider: YOSELIN LOPEZ Procedure Note Interface, Radiantres - 05/08/2019 3:20 PM CDT Patient Name: DARWIN CANSECO Date of : 1960 Procedure: XRAY CHEST PORTABLE Date of Service: 05/08/2019 EXAM: XRAY CHEST PORTABLE INDICATION: Male, 58 years patient, Pt in A-fib. Unable to identify PICC tip via ECG tip confirmation system. PICC is in. Please do a PCXR for PICC tip verification. Pt is going home soon. COMPARISON(S): Chest x-ray 03/06/2019 TECHNIQUE: AP portable view FINDINGS: Support Devices: There is a right side PICC which terminates in the mid SVC. Lungs/pleura: The lungs are expanded. The lungs are clear. There is no pneumothorax on either side. Both costophrenic angles are sharp. Heart/mediastinum/vasculature: There is moderate cardiomegaly. Normal mediastinum and sj. There is mild prominence of the pulmonary hilar arteries and peripheral pulmonary arteries, consistent with congestive heart failure (CHF). Normal visualized aortic arch and descending thoracic aorta. Osseous: Normal visualized thoracic spine. Normal visualized ribs, clavicles, and shoulders. IMPRESSION: 1. Moderate cardiomegaly and mild pulmonary vascular congestion. Satisfactorily positioned support devices. Finalized by: Kiara Arreola MD on 05/08/2019 3:18 PM CDT Patient/Procedure Information: [facility] MRN/WU: [id number] Order Number: [id number] Accession Number: [id number] Ordering Provider: YOSELIN LOPEZ Authorizing Provider: YOSELIN LOPEZ Performing Organization Address City/[facility]/Zipcode Phone Number [id number] GLUCOSE BY METER, POCT (05/08/2019 1:21 PM CDT)Only the most recent of24 resultswithin the time period is included. Glucose POC 300 (H) 70 - 100 mg/dL [facility] Specimen Blood Performing Organization Address [facility]/Zipcode Phone Number [facility] [address] [place] [phone] COLLECT AND HOLD LAVENDER (EDTA) TOP TUBE (05/08/2019 5:34 AM CDT)Only the most recent of2 resultswithin the time period is included. Collect and Hold Comment: RECEIVED [facility] Specimen Status [place] Specimen Blood Performing Organization Address City/[facility]/Zipcode Phone Number [facility] [address] [place] [phone] CREATININE (05/08/2019 5:34 AM CDT)Only the most recent of6 resultswithin the time period is included. Creatinine 0.98 0.80 - 1.30 [facility] mg/dL [facility] Age 58 Years [facility] eGFR Non- 79 >=60 [facility] Tun[place]ian mL/min/1.73m2 [place] eGFR >90 >=60 [facility] mL/min/1.73m2 [place] Specimen Blood Performing Organization Address [facility]/Zipcode Phone Number [facility] [address] [place] [address] VANCOMYCIN TROUGH (05/06/2019 5:26 PM CDT)Only the most recent of2 resultswithin the time period is included. Vancomycin Trough 11.1 10.0 - 20.0 ug/mL [facility] Specimen Blood Performing Organization Address [facility] Phone Number [facility] [address] [place] [address] ECHO TRANSESOPHAGEAL (05/05/2019 9:15 AM CDT) Specimen Narrative Performed At [facility] Patient: DARWIN CANSECO MR#:[id number] Exam Date:05/05/2019 Transthoracic Echocardiogram [facility] [address] [place], [place] [id number] : 108/83 mmHg HR:73 bpm : 1960Exam Location: Bedside Height:71.00 "(180.3 cm) Age: 58 year(s)Patient Room: [facility] 1Weight:328 lbs.( 148.78 kg) Gender:MalePatient Status: Inpatient BSA: 2.6 m2 Senior Marketing Analyst:BOWEN FAUSTIN RDCS, RVT Reading Physician:JEWEL ESPINOSA MD Ordering Physician: ROBERT NAIR MD Referring Physician:FLORINA JHAVERI NP City Administrator Centerless Grinder: SANDIE GILL Nurse:HAWA BALL, RN Nurse:ROSE SPENCER RN Procedure Indication(s): MRSA bacteremia; rule out vegetations Examination: PETTY Limited 2D, Limited Spectral Doppler, Color Doppler Conclusions Overall Conclusions No evidence of vegetation. Left Ventricle: Reduced left ventricular systolic function. The ejection fraction is visually estimated to be 40 %. Mitral Valve: [id number] mitral regurgitation. Right Ventricle: Normal right ventricular systolic function. Comparison Study Comparison Date: 03/07/2019 Comparison Study: Transthoracic Echocardiogram LV overall function has not changed, Mitral regurgitation has worsened Findings Left Ventricle: Mildly dilated left ventricle. Increased left ventricular wall thickness. Reduced left ventricular systolic function. The ejection fraction is visually estimated to be 40 %. IVS: Increased left ventricular septal thickness. Left Atrium: Dilated left atrium by visual assessment. Left Atrial Appendage: Normal left atrial appendage size. Normal color flow doppler in the left atrial appendage. Decreased ejection velocity. No thrombus in left atrial appendage. Aortic Valve: Tricuspid aortic valve with normal function. Mild aortic cuspal thickening. The noncoronary cusp demostrates mild calcification. No significant aortic regurgitation. No aortic stenosis. There is no vegetation on the aortic valve. Aorta: No atheroma present. The sinus of valsalva is normal in size. Mitral Valve: Mild mitral leaflet thickening. Mitral leaflet calcification is present. Mild- to-moderate mitral regurgitation. No mitral stenosis. There is no vegetation on the mitral valve. IAS: No gross evidence of shunt flow seen; however the possibility of a PFO cannot be completely ruled out. Right Ventricle: Normal right ventricular size. Normal right ventricular systolic function. Normal right ventricular wall thickness. Right Atrium: Normal right atrial size. Tricuspid Valve: Normal tricuspid valve structure. Trivial tricuspid regurgitation. There is no vegetation on the tricuspid valve. Pulmonic Valve: Normal pulmonary valve structure. No significant pulmonary regurgitation. No pulmonary stenosis. There is no vegetation on the pulmonary valve. IVC: Normal IVC size with normal respirophasic changes. Pericardium: No significant pericardial effusion. No pleural effusion. Exam Details PETTY Probe #:10 PETTY Probe Type: An adult omniplane probe was inserted by the attending photovoltaic installation technician. Passing of Probe: Trouble-free probe introduction and examination Complications:No complications during the examination Medications DateMed Name Med Route Dose UnitsComment 05/05/2019Fentanyl Intravenous 50 micrograms 05/05/2019MidazolamIntravenous 3 milligrams 05/05/20192% Viscous Lidocaine Oral 10 milliliters 05/05/20190.9% Normal Saline Intravenous 50 milliliters Measurements Heart Rate LabelValueNormal Value Heart Rate 73 bpm (No Signature Object) Procedure Note Interface, Inc Results No Pull Forward - 05/05/2019 5:34 PM CDT Patient: DARWIN CANSECO MR#: [id number] Exam Date: 05/05/2019 Transthoracic Echocardiogram [facility] [address] [place] [address] BP: 108/83 mmHg HR: 73 bpm : 1960 Exam Location: Bedside Height: 71.00 "(180.3 cm) Age: 58 year(s) Patient Room: [facility] Weight: 328 lbs.(148.78 kg) Gender: Male Patient Status: Inpatient BSA: 2.6 m2 Senior Marketing Analyst: BOWEN FAUSTIN RDCS, RVT Reading Physician: JEWEL ESPINOSA MD Ordering Physician: ROBERT NAIR MD Referring Physician: FLORINA JHAVERI NP City Administrator Centerless Grinder: SANDIE GILL Nurse: HAWA BALL RN Nurse: ROSE SPENCER RN Procedure Indication(s): MRSA bacteremia; rule out vegetations Examination: PETTY Limited 2D, Limited Spectral Doppler, Color Doppler Conclusions Overall Conclusions No evidence of vegetation. Left Ventricle: Reduced left ventricular systolic function. The ejection fraction is visually estimated to be 40 %. Mitral Valve: [id number] mitral regurgitation. Right Ventricle: Normal right ventricular systolic function. Comparison Study Comparison Date: 03/07/2019 Comparison Study: Transthoracic Echocardiogram LV overall function has not changed, Mitral regurgitation has worsened Findings Left Ventricle: Mildly dilated left ventricle. Increased left ventricular wall thickness. Reduced left ventricular systolic function. The ejection fraction is visually estimated to be 40 %. IVS: Increased left ventricular septal thickness. Left Atrium: Dilated left atrium by visual assessment. Left Atrial Appendage: Normal left atrial appendage size. Normal color flow doppler in the left atrial appendage. Decreased ejection velocity. No thrombus in left atrial appendage. Aortic Valve: Tricuspid aortic valve with normal function. Mild aortic cuspal thickening. The noncoronary cusp demostrates mild calcification. No significant aortic regurgitation. No aortic stenosis. There is no vegetation on the aortic valve. Aorta: No atheroma present. The sinus of valsalva is normal in size. Mitral Valve: Mild mitral leaflet thickening. Mitral leaflet calcification is present. Mild- to-moderate mitral regurgitation. No mitral stenosis. There is no vegetation on the mitral valve. IAS: No gross evidence of shunt flow seen; however the possibility of a PFO cannot be completely ruled out. Right Ventricle: Normal right ventricular size. Normal right ventricular systolic function. Normal right ventricular wall thickness. Right Atrium: Normal right atrial size. Tricuspid Valve: Normal tricuspid valve structure. Trivial tricuspid regurgitation. There is no vegetation on the tricuspid valve. Pulmonic Valve: Normal pulmonary valve structure. No significant pulmonary regurgitation. No pulmonary stenosis. There is no vegetation on the pulmonary valve. IVC: Normal IVC size with normal respirophasic changes. Pericardium: No significant pericardial effusion. No pleural effusion. Exam Details PETTY Probe #: 10 PETTY Probe Type: An adult omniplane probe was inserted by the attending photovoltaic installation technician. Passing of Probe: Trouble-free probe introduction and examination Complications: No complications during the examination Medications Date Med Name Med Route Dose Units Comment 05/05/2019 Fentanyl Intravenous 50 micrograms 05/05/2019 Midazolam Intravenous 3 milligrams 05/05/2019 2% Viscous Lidocaine Oral 10 milliliters 05/05/2019 0.9% Normal Saline Intravenous 50 milliliters Measurements Heart Rate Label Value Normal Value Heart Rate 73 bpm (No Signature Object) Performing Organization Address City/State/Zipcode Phone Number [facility] [place] CULTURE BACTERIAL, OTHER WITH GRAM STAIN (05/03/2019 1:32 PM CDT) Culture Result METHICILLIN RESISTANT [facility] STAPHYLOCOCCUS AUREUS CLINIC (!) Gram Stain Many (>25/LPF) WBC's [facility] Gram Stain No epithelial cells [facility] Gram Stain Rare (less than 1/OIF) [facility] Gram positive cocci in CLINIC clusters Specimen Fluid sample (specimen) - Entire finger (body structure) Narrative Performed At swab from left index [facility] finger Organism Antibiotic Method Susceptibility Staphylococcus aureus, MRSA Clindamycin TISH <=0.25 ug/mL: Sensitive Staphylococcus aureus, MRSA Erythromycin TISH >=8 ug/mL: Resistant Staphylococcus aureus, MRSA Oxacillin TISH >=4 ug/mL: Resistant Comment: Oxacillin predicts susceptibility to cefazolin, cephalexin, nafcillin and dicloxacillin. Staphylococcus aureus, MRSA Penicillin TISH >=0.5 ug/mL: Resistant Staphylococcus aureus, MRSA Rifampicin TISH <=0.5 ug/mL: Sensitive Comment: Rifampicin should not be used alone for antimicrobial therapy. Staphylococcus aureus, MRSA Tetracycline TISH <=1 ug/mL: Sensitive Staphylococcus aureus, MRSA Trimethoprim/Sulfamethoxazole TISH <=10 ug/mL: Sensitive Staphylococcus aureus, MRSA Vancomycin TISH <=0.5 ug/mL: Sensitive Comment: Oxacillin results can be applied to the other penicillinase-stable penicillins (cloxacillin, dicloxacillin, flucloxacillin, methicillin, and nafcillin), beta lactam/beta lactamase inhibitor combinations , antistaphylococcal cephems, and carbapenems approved for use by the FDA for staphylcoccal infections. Oxacillin resistant staphylococci are resistant to all currently available beta lactam antimicrobial agents, with the exception of the newer cephalosporins with anti-MRSA activity. Performing Organization Address [facility] Phone Number [address] [phone] CULTURE BACTERIAL, ANAEROBE (05/03/2019 1:32 PM CDT) Culture Result No anaerobic growth [facility] at 5 days CLINIC Specimen Fluid sample (specimen) - Entire finger (body structure) Narrative Performed At swab from left index [facility] finger Performing Organization Address [facility] Phone Number [address] [address] BASIC METABOLIC PANEL (05/03/2019 5:42 AM CDT) Glucose 296 (H) 70 - 100 mg/dL [facility] BUN 27 (H) 6 - 22 mg/dL [facility] Creatinine 0.98 0.80 - 1.30 [facility] mg/dL [place] BUN/Creatinine Ratio 27.6 (H) 10.0 - 25.0 [facility] Sodium 137 135 - 145 meq/L [facility] Potassium 3.7 3.5 - 5.3 meq/L [facility] Chloride 96 (L) 99 - 110 meq/L [facility] CO2 30 (H) 20 - 29 meq/L [facility] Anion Gap with K 15 6 - 20 meq/L [facility] Calcium 9.9 8.5 - 10.5 [facility] mg/dL [place] Age 58 Years [facility] eGFR Non- 79 >=60 [facility] mL/min/1.73m2 [place] eGFR >90 >=60 [facility] Tunisian mL/min/1.73m2 [place] Specimen Blood Performing Organization Address [facility]/Zipcode Phone Number [facility] [address] [place] [address] COMPLETE BLOOD COUNT WITHOUT DIFFERENTIAL (05/03/2019 5:42 AM CDT) [facility] WBC 13.2 (H) 4.0 - 11.0 K/uL [facility] RBC 3.71 (L) 4.40 - 5.80 M/uL [facility] Hemoglobin 9.9 (L) 13.5 - 17.5 g/dL [facility] Hematocrit 31.9 (L) 40.0 - 50.0 % [facility] MCV 86.0 80.0 - 98.0 fL [facility] MCH 26.7 25.5 - 34.0 pg [facility] MCHC 31.0 (L) 31.5 - 36.5 g/dL [facility] RDW-CV 14.2 11.5 - 15.5 % [facility] RDW-SD 43.0 35.5 - 50.0 fl [facility] Platelet Count 232 140 - 400 K/uL [facility] MPV 9.6 8.5 - 12.0 fL [facility] Specimen Blood Performing Organization Address [facility]/Zipcode Phone Number [facility] [address] [place], [place] [address] LAB ONLY-GRAM POSITIVE BLOOD CULTURE ID BY NAD (05/02/2019 7:45 PM CDT) [facility] Staphylococcus aureus DETECTED (A) Not Detected [facility] mecA DETECTED (A) Not Detected [facility] (Methicillin-resistance CLINIC gene) Staphylococcus Not Detected Not Detected [facility] epidermidis [facility] Staphylococcus Not Detected Not Detected [facility] lugdunensis [facility] Streptococcus species Not Detected Not Detected [facility] Streptococcus Not Detected Not Detected [facility] pneumoniae [facility] Streptococcus pyogenes Not Detected Not Detected [facility] (Group A) [facility] Streptococcus Not Detected Not Detected [facility] agalactiae (Group B) [facility] Streptococcus anginosus Not Detected Not Detected [facility] group [facility] Enterococcus faecalis Not Detected Not Detected [facility] Enterococcus faecium Not Detected Not Detected [facility] Listeria species Not Detected Not Detected [facility] Specimen Blood Narrative Performed At This test was performed by multiplexed/real-time polymerase [facility] chain reaction (PCR) and probe hybridization on the [employer] instrument. This test is approved by the Food and Drug Administration (FDA). Performing Organization Address City/State/Zipcode Phone Number [address] [address] LAB ONLY-COMPLETE BLOOD COUNT WITH DIFFERENTIAL (05/02/2019 7:45 PM CDT) WBC 15.5 (H) 4.0 - 11.0 K/uL [address] RBC 3.76 (L) 4.40 - 5.[address] M/uL Hemoglobin 10.2 (L) 13.5 - 17.[address] g/dL Hematocrit 32.1 (L) 40.0 - 50.0 % [address] MCV 85.4 80.0 - 98.[address] MCH 27.1 25.5 - 34.[address] MCHC 31.8 31.5 - 36.[address] g/dL RDW-CV 14.3 11.5 - 15.5 % [address] RDW-SD 44.9 35.5 - 50.[address] Platelet Count 223 140 - 400 K/uL [address] MPV 9.5 8.5 - 12.[address] Seg Neut Absolute 12.3 (H) 1.8 - 8.0 K/uL [address] Lymphocytes Absolute 1.5 0.8 - 4.1 K/uL [address] Monocytes Absolute 1.5 (H) 0.0 - 1.0 K/uL [address] Eosinophils Absolute 0.2 0.0 - 0.7 K/uL [address] Basophil Absolute 0.1 0.0 - 0.2 K/uL [address] Immature Granulocyte 0.08 (H) 0.00 - 0.[address] Absolute K/uL Neutrophils Abs. 12,300 /uL [address] (Segs and Bands) Neutrophils Percent 79.1 % [address] Lymphocytes Percent 9.9 % [address] Monocytes Percent 9.5 % [address] Immature Granulocyte 0.5 % [address] Percent Eosinophils Percent 1.2 % [address] Basophil Percent 0.3 % [address] Nucleated RBC 0 /[address] Specimen Blood Performing Organization Address [facility] Phone Number [address] [address] PROTIME/INR (05/02/2019 7:45 PM CDT) Protime 16.0 (H) 12.0 - 14.[address] INR 1.3 (L) 2.0 - 3.[address] Specimen Blood Narrative Performed At Normal INR reference range (patients not on oral [address] anticoagulants)0.9-1.1. INR Standard Intensity=(2.0 - 3.0) INR Higher Intensity=(2.5 - 3.5) Performing Organization Address [facility] Phone Number [address] [place] [address] COMPREHENSIVE METABOLIC PANEL (05/02/2019 7:45 PM CDT) Glucose 253 (H) 70 - 100 mg/dL [address] BUN 30 (H) 6 - 22 mg/dL [address] Creatinine 1.13 0.80 - 1.[address] mg/dL BUN/Creatinine Ratio 26.5 (H) 10.0 - 25.[address] Sodium 135 135 - 145 meq/L [address] Potassium 3.7 3.5 - 5.3 meq/L [address] Chloride 94 (L) 99 - 110 meq/L [address] CO2 31 (H) 20 - 29 meq/L [address] Anion Gap with K 14 6 - 20 meq/L [address] Calcium 10.0 8.5 - 10.[address] mg/dL Protein Total 7.6 6.0 - 8.2 g/dL [address] Albumin 4.0 3.5 - 5.0 g/dL [address] Alkaline Phosphatase 93 30 - 150 U/L [address] AST - SGOT 11 0 - 35 U/L [address] ALT - SGPT 8 0 - 55 U/L [address] Bilirubin Total 0.7 0.2 - 1.2 mg/dL [address] Age [address] eGFR Non- 67 >=[address] Tun[place]ian mL/min/1.73m2 eGFR 81 >=[address] mL/min/1.73m2 Specimen Blood Performing Organization Address [facility] Phone Number [address] [place] [address] C-REACTIVE PROTEIN (INFLAMMATION) (05/02/2019 7:45 PM CDT) CRP 153.7 (H) 0.0 - 8.0 mg/L [address] Specimen Blood Performing Organization Address [facility] Phone Number [address] [place] [id number] CULTURE, BLOOD (05/02/2019 7:45 PM CDT)Only the most recent of2 resultswithin the time period is included. Culture Result METHICILLIN RESISTANT [facility] STAPHYLOCOCCUS AUREUS [facility] (!)Comment: 2 of 2 bottles positive for this isolate. Specimen Blood Narrative Performed At Time to positivity:19 hours 53 minutes. [facility] Organism Antibiotic Method Susceptibility Staphylococcus aureus, MRSA Clindamycin TISH <=0.25 ug/mL: Sensitive Staphylococcus aureus, MRSA Erythromycin TISH >=8 ug/mL: Resistant Staphylococcus aureus, MRSA Oxacillin TISH >=4 ug/mL: Resistant Comment: Oxacillin predicts susceptibility to cefazolin, cephalexin, nafcillin and dicloxacillin. Staphylococcus aureus, MRSA Penicillin TISH >=0.5 ug/mL: Resistant Staphylococcus aureus, MRSA Rifampicin TISH <=0.5 ug/mL: Sensitive Comment: Rifampicin should not be used alone for antimicrobial therapy. Staphylococcus aureus, MRSA Tetracycline TISH <=1 ug/mL: Sensitive Staphylococcus aureus, MRSA Trimethoprim/Sulfamethoxazole TISH <=10 ug/mL: Sensitive Staphylococcus aureus, MRSA Vancomycin TISH <=0.5 ug/mL: Sensitive Comment: Oxacillin results can be applied to the other penicillinase-stable penicillins (cloxacillin, dicloxacillin, flucloxacillin, methicillin, and nafcillin), beta lactam/beta lactamase inhibitor combinations , antistaphylococcal cephems, and carbapenems approved for use by the FDA for staphylcoccal infections. Oxacillin resistant staphylococci are resistant to all currently available beta lactam antimicrobial agents, with the exception of the newer cephalosporins with anti-MRSA activity. Performing Organization Address City/State/[place] [address] documented in this encounter Visit Diagnoses Diagnosis MRSA bacteremia - Primary Bacteremia Diabetic neuropathy (HCC) Type II or unspecified type diabetes mellitus with neurological manifestations , not stated as uncontrolled S/P amputation Other problems of limbs MRSA (methicillin resistant Staphylococcus aureus) septicemia (HCC) Methicillin resistant staphylococcus aureus septicemia Shortness of breath Cellulitis of left upper extremity Cellulitis and abscess of upper arm and forearm Cellulitis Cellulitis and abscess of unspecified site documented in this encounter Discharge Diagnoses Not on filedocumented in this encounter Administered Medications Medication Order MAR Action Action Date Dose Rate Site acetaminophen (TYLENOL) tablet Given 05/07/2019 8:20 PM CDT 650 mg 650 mg 650 mg, Oral, Every four hours prn, Starting Wed05/02/19 at 1817, Until Discontinued, mild pain, fever, for pain Scale 3 or less, Pain stratification is defined as follows for either analog scale (0-10) or critical care pain observation tool (CPOT, 0-8). a. No pain (0) b. Mild pain level (1-3) c. Moderate pain level (4-6) d. Severe pain level (greater than or equal to 7), Given 05/07/2019 8:20 AM CDT 650 mg Given 05/06/2019 8:29 AM CDT 650 mg bisacodyl (DULCOLAX) suppository 10 mg 10 mg, Rectal, One time a day prn, Starting Wed05/02/19 at 1911, Until Discontinued, constipation, Use SECOND for constipation. If patient cannot take oral medications, use first for constipation., carbohydrate 15 g 15 g, Oral, PRN per parameter, Starting Wed05/02/19 at 191, Until Discontinued , low blood glucose, Give 15 grams of carbohydrate if blood glucose is less than 70 mg/dL, patient is responsive and able to take food or oral meds. Recheck blood glucose in 15 minutes. Repeat 1 time and call MD. If recheck is greater than 70 mg/dL and able to take food or oral meds, give 15 gram carbohydrate if meal or snack due in more than an hour. Serve meal or snack if due in less than 1 hour. See hypoglycemia treatment on cardex. Sources of 15 grams carbohydrate: a.4 oz of fruit juice or b.4 oz of soda pop (NOT diet) or c.1 tablespoon of honey, carVEDilol (COREG) tablet 12.5 mg Given 05/08/2019 8:14 AM CDT 12.5 mg 12.5 mg, Oral, Two times a day with meals, First dose on Wed05/02/19 at 2039, Until Discontinued, Take with food. Hold for SBP less than 100 Hold for HR less than 60 Take with food., Given 05/07/2019 5:05 PM CDT 12.5 mg Given 05/07/2019 8:20 AM CDT 12.5 mg dextrose 50% IV solution 50 mL 50 mL (25 g), IV, PRN per parameter, Starting Wed05/02/19 at 191, Until Discontinued, low blood glucose, 50 mL, Give if blood glucose is less than 70 mg/dL, patient is unresponsive or NPO, and has IV access. Recheck blood glucose in 15 minutes and call MD. Repeat dose if recheck less than 70 mg/dL and call MD. If recheck is greater than 70 mg/dL and able to take food or oral meds, give 15 gram carbohydrate if meal or snack due in more than an hour. Serve meal or snack if due in less than 1 hour. See hypoglycemia treatment on cardex., dextrose chewable tablet 16 g 16 g (4 tablet), Oral, PRN per parameter, Starting Wed05/02/19 at 191, Until Discontinued, low blood glucose, Chew before swallowing. Give 15 gram of carbohydrate if blood glucose is less than 70 mg/dL, patient is responsive and able to take food or oral meds. Recheck blood glucose in 15 minutes. Repeat 15 gram carbohydrate if recheck is less than 70 mg/dL and call MD. If recheck is greater than 70 mg/dL and able to take food or oral meds, give 15 gram carbohydrate if meal or snack due in more than an hour. Serve meal or snack if due in less than 1 hour. See hypoglycemia treatment on cardex. (Sources of 15 gram carbohydrate: 4 oz fruit juice or 4 oz soda pop (NOT diet) or 1 tablespoonful honey or 4 glucose tablets )., docusate sodium (THEREVAC-SB MINI;ENEMEEZ MINI) 283 MG enema 1 enema 1 enema, Rectal, One time a day prn, Starting Wed05/02/19 at 191, Until Discontinued, constipation, Use THIRD for constipation - if no BM 8 hours after ducolax suppository. If patient cannot take oral medications, use second for constipation., gabapentin (NEURONTIN) capsule 300 mg Given 05/07/2019 8:21 PM CDT 300 mg 300 mg, Oral, Bedtime, First dose on Wed05/02/19 at 2100, Until Discontinued Given 05/06/2019 9:42 PM CDT 300 mg Given 05/05/2019 9:52 PM CDT 300 mg glucagon for injection 1 mg vial 1 mg 1 mg, Intramuscular, PRN per parameter, Starting Wed05/02/19 at 191, Until Discontinued, low blood glucose, Give if blood glucose less than 70 mg/dL, patient is unresponsive or NPO, and has no IV access. Establish IV access. Recheck blood glucose in 15 minutes and call MD. If recheck is greater than 70 mg/dL and able to take food or oral meds, give 15 gram carbohydrate if meal or snack due in more than an hour. Serve meals or snack if due in less than 1 hour. See hypoglycemia treatment on cardex. Reconstitute vial with 1 mL of sterile water for injection for reconstitution for a final concentration of 1 mg/mL. Shake vial gently. Use immediately and discard unused portion. Reconstitute with 1 mL of sterile water for injection to yield 1 mg/mL. Shake vial gently. Use immediately and discard unused portion., hEParin 100 units/ mL injection for Given 05/08/2019 3:00 PM CDT 300 Units heplock FLUSH 300 Units (3 mL), IV, PRN per parameter, Starting Wed05/08/19 at 1446, Until Discontinued, other (Specify), flush after medication, 3 mL insulin aspart (NovoLOG) SQ correction Given 05/08/2019 1:36 PM CDT 13 Units scale (Adult) 3-16 Units, Subcutaneous, Three times a day with meals, First dose on Wed05/04/19 at 0730, Until Discontinued, 0.16 mL, Patient is eating HIGH DOSE insulin aspart (NovoLOG) Subcutaneous Correction Scale: Premeal Blood Glucose=Insulin Dose 150-199 3 units 200-249 5 units 250-299 9 units 300-349 13 units Over 349 16 units, Given 05/08/2019 8:13 AM CDT 9 Units Given 05/07/2019 7:04 PM CDT 9 Units insulin detemir (LEVEMIR) SQ injection Given 05/07/2019 8:22 PM CDT 20 Units 20 Units, Subcutaneous, Bedtime, First dose on Wed05/04/19 at 2100, Until Discontinued, 0.2 mL, Do not hold. Call provider if blood glucose less than 100 mg/dl, if patient changed to NPO or if tube feedings stopped., Given 05/06/2019 9:43 PM CDT 20 Units Given 05/05/2019 9:52 PM CDT 20 Units melatonin tablet 3 mg Given 05/07/2019 8:21 PM CDT 3 mg 3 mg, Oral, Bedtime prn, Starting Wed05/02/19 at 1911, Until Discontinued, other (Specify), insomnia, If inadequate response in 60 minutes, may proceed to next choice option or, if no other options, contact provider., Given 05/06/2019 9:42 PM CDT 3 mg Given 05/05/2019 9:52 PM CDT 3 mg metoclopramide (REGLAN) inj soln 5 mg 5 mg, IV, Every eight hours prn, Starting Wed05/02/19 at 191, Until Discontinued, nausea, vomiting, 2 mL, Use THIRD. If ineffective after 30 minutes and ondansetron oral and IV given, call physician for alternative. If preference is to further dilute for IV administration: First draw up patient-specific dose, then dilute to 10 mL with 0.9% sodium chloride., morphine injection solution (conc: 2 mg/mL) 2 mg 2 mg, IV, Every two hours prn, Starting Wed05/02/19 at 1817, Until Discontinued , severe pain, for pain Scale 7 or greater or pain not relieved by medications for Pain Scale 4 to 6, 1 mL, Pain stratification is defined as follows for either analog scale (0-10) or critical care pain observation tool (CPOT, 0-8). a. No pain (0) b. Mild pain level (1-3) c. Moderate pain level (4-6) d. Severe pain level (greater than or equal to 7), omeprazole (priLOSEC) capsule 20 mg Given 05/08/2019 8:14 AM CDT 20 mg 20 mg, Oral, Every morning, First dose on Wed05/03/19 at 0900, Until Discontinued, Swallow cap whole. Do not crush, chew or open., Given 05/07/2019 8:20 AM CDT 20 mg Given 05/06/2019 9:16 AM CDT 20 mg ondansetron (ZOFRAN ODT) dispersible tablet 4 mg 4 mg, Oral, Every four hours prn, Starting Wed05/02/19 at 191, Until Discontinued, nausea, vomiting, Use FIRST. If ineffective after 30 minutes use ondansetron IV , ondansetron (ZOFRAN) injection solution 4 mg 4 mg, IV, Every four hours prn, Starting Wed05/02/19 at 191, Until Discontinued , nausea, vomiting, 2 mL, Use SECOND. If ineffective after 30 minutes and ondansetron oral given, use metoclopramide IV If preference is to further dilute for IV administration: First draw up patient-specific dose, then dilute to 10 mL with 0.9% sodium chloride., oxyCODONE (OXY-IR) tablet 5 mg Given 05/08/2019 6:15 AM CDT 5 mg 5 mg, Oral, Every four hours prn, Starting Wed05/02/19 at 1817, Until Discontinued, moderate pain, for pain Scale 4 to 6 or pain not relieved by medications for Pain Scale 1 - 3, Pain stratification is defined as follows for either analog scale (0-10) or critical care pain observation tool (CPOT, 0-8). a. No pain (0) b. Mild pain level (1-3) c. Moderate pain level (4-6) d. Severe pain level (greater than or equal to 7), Given 05/07/2019 8:21 PM CDT 5 mg Given 05/06/2019 9:42 PM CDT 5 mg senna-docusate sodium (SENOKOT-S;PERICOLACE) tablet 2 tablet 2 tablet, Oral, Two times a day prn, Starting Wed05/02/19 at 1911, Until Discontinued, constipation, Use FIRST for constipation unless patient cannot take oral medications., simvastatin (ZOCOR) tablet 10 mg Given 05/07/2019 8:21 PM CDT 10 mg 10 mg, Oral, Bedtime, First dose on Wed05/02/19 at 2100, Until Discontinued Given 05/06/2019 9:42 PM CDT 10 mg Given 05/05/2019 9:53 PM CDT 10 mg sodium chloride 0.9% flush (adult) 10 mL Given 05/08/2019 3:01 PM CDT 10 mL 10 mL, IV, Two times a day and prn, First dose on Wed05/02/19 at 2100, Until Discontinued, 10 mL, Flush IV line as scheduled and as often as necessary before and after meds., Given 05/07/2019 8:23 PM CDT 10 mL Given 05/07/2019 8:55 AM CDT 10 mL sodium chloride 0.9% IV solution New Bag 05/05/2019 12:19 AM CDT 75 mL/hr IV, at 75 mL/hr, Continuous, Starting Wed05/03/19 at 1505, Until Discontinued, 1,000 mL, Post - Op New Bag 05/04/2019 9:05 AM CDT 75 mL/hr New Bag 05/03/2019 3:05 PM CDT 75 mL/hr tamsulosin (FLOMAX) capsule 0.8 mg Given 05/08/2019 8:15 AM CDT 0.8 mg 0.8 mg, Oral, DAILY, First dose on Wed05/03/19 at 0900, Until Discontinued, Swallow cap whole. Do not crush, chew or open., Given 05/07/2019 8:21 AM CDT 0.8 mg Given 05/06/2019 8:31 AM CDT 0.8 mg vancomycin in dextrose 200 mL IV piggyback (premix) 1,000 mg 1,000 mg, IV, Every twelve hours, First dose on Wed05/08/19 at 2000, Until Discontinued, 200 mL Medication Order MAR Action Action Date Dose Rate Site cefepime (MAXIPIME) 2000 mg/20 Given 05/07/2019 8:22 PM CDT 2,000 mg mL in sterile water IV syringe 2,000 mg, IV, Every twelve hours, First dose on Wed05/02/19 at 2100, Until Discontinued, 20 mL, Administer over 5 minutes., Given 05/07/2019 8:30 AM CDT 2,000 mg Given 05/06/2019 9:42 PM CDT 2,000 mg fentaNYL 100 mcg/2 mL preservative free Given 05/05/2019 9:49 AM CDT 50 mcg injection solution 0-100 mcg 0-100 mcg, IV, One time, 1 dose, Wed05/05/19 at 1015, 2 mL, Pre-procedure ([facility]), procedural area to release, For pain during procedure, insulin aspart (NovoLOG) Given 05/03/2019 5:13 PM 7 Units Right Arm Subcutaneous SQ correction scale CDT (Adult) 2-12 Units, Subcutaneous, Three times a day with meals, First dose on Wed05/03/19 at 1730, Until Discontinued, 0.12 mL, Patient is eating MEDIUM DOSE insulin aspart (NovoLOG) subcutaneous correction scale Premeal Blood Glucose=Insulin Dose 150-199 2 units 200-249 4 units 250-299 7 units 300-349 10 units Over 349 12 units, insulin aspart (NovoLOG) SQ injection Given 05/03/2019 10:49 PM CDT 10 Units 10 Units, Subcutaneous, One time, 1 dose, Wed05/03/19 at 2305, 0.1 mL insulin detemir (LEVEMIR) SQ injection Given 05/03/2019 10:48 PM CDT 17 Units 17 Units, Subcutaneous, Bedtime, First dose on Wed05/02/19 at 2100, Until Discontinued, 0.17 mL, Do not hold. Call provider if blood glucose less than 100 mg/dl, if patient changed to NPO or if tube feedings stopped., Given 05/02/2019 9:34 PM CDT 17 Units lidocaine viscous (XYLOCAINE) 2 % solution Given 05/05/2019 9:38 AM CDT 10 mL 5-15 mL 5-15 mL, Mouth/Throat, Pre-op, 1 dose, Wed05/05/19 at 1015, 15 mL, Pre-procedure ([facility]), procedural area to release, Swish and gargle to throat prior to procedure. If the lidocaine (300 mg/15 mL=20 mg/mL) is to be swallowed by the patient, the maximum recommended is 4 mg/kg with a max dose of 300 mg., lidocaine viscous (XYLOCAINE) 2% solution 1 dose, Starting Wed05/05/19 at 0918, Until Wed05/05/19 at 0938, [place] : cabinet override, midazolam (VERSED) injection solution 0-8 mg Given 05/05/2019 9:49 AM CDT 3 mg 0-8 mg, IV, Pre-op, 1 dose, Wed05/05/19 at 1015, 10 mL, Pre-procedure ([facility]), procedural area to release, For sedation during procedure; Do not give on floor, sodium chloride 0.9% flush (adult) 10 mL Given 05/06/2019 9:45 PM CDT 10 mL 10 mL, IV, Two times a day and prn, First dose on Wed05/05/19 at 0915, Until Discontinued, 10 mL, Pre - Op, Flush IV line as scheduled and as often as necessary before and after meds., Given 05/06/2019 10:55 AM CDT 10 mL Given 05/05/2019 9:53 PM CDT 10 mL sodium chloride 0.9% IV Already Infusing 05/03/2019 2:10 PM CDT 125 mL/ hr solution IV, at 125 mL/hr, Continuous, Starting Wed05/03/19 at 1435, Until Wed05/03/19 at 1449, 1,000 mL, PACU, TKO current fluids if patient is going to Day Unit / ARU and tolerating PO fluids without nausea., sodium chloride 0.9% IV solution New Bag/Tubing 05/05/2019 9:05 AM CDT 25 mL/hr IV, at 25 mL/hr, Continuous, Starting Wed05/05/19 at 1015, Until Wed05/07/19 at 0822, 1,000 mL, Pre - Op vancomycin (VANCOCIN) 1,500 mg in sodium Given 05/04/2019 11:52 AM CDT 1, 500 mg chloride 0.9% 250 mL (Locked) 1,500 mg, IV, Every twelve hours, First dose on Wed05/02/19 at 2300, Until Discontinued, 250 mL, Vanco Dose 1500 mg- Total Volume: 290 mL @ 145 mL/hr x 2 hours , Given 05/04/2019 12:03 AM CDT 1,500 mg Given 05/03/2019 11:35 AM CDT 1,500 mg vancomycin (VANCOCIN) 1,500 mg in sodium Given 05/08/2019 6:17 AM CDT 1, 500 mg chloride 0.9% 250 mL (Locked) 1,500 mg, IV, Every eighteen hours, First dose on Wed05/05/19 at 0600, Until Discontinued, 250 mL, Vanco Dose 1500 mg- Total Volume: 290 mL @ 145 mL/hr x 2 hours , Given 05/07/2019 12:00 PM CDT 1,500 mg Given 05/06/2019 6:10 PM CDT 1,500 mg documented in this encounter
== END 2019-05-02 16:25 | DRG 603 ==
LOC: LL.DI 14:57 → LL.MS 16:13
PROVIDERS: ADMIT Physician Assistant; ATTEND Family Medicine
DX: L03.012 Cellulitis of left finger (principal); I42.9 Cardiomyopathy, unspecified; L02.512 Cutaneous abscess of left hand; H54.7 Unspecified visual loss; I48.91 Unspecified atrial fibrillation; I10 Essential (primary) hypertension; E78.00 Pure hypercholesterolemia, unspecified; J44.9 Chronic obstructive pulmonary disease, unspecified; K21.9 Gastro-esophageal reflux disease without esophagitis; M19.91 Primary osteoarthritis, unspecified site; E66.9 Obesity, unspecified; E11.42 Type 2 diabetes mellitus with diabetic polyneuropathy; G89.29 Other chronic pain; M54.9 Dorsalgia, unspecified; Z86.010 Personal history of colon polyps; Z79.4 Long term (current) use of insulin; Z79.899 Other long term (current) drug therapy
CPT/HCPCS: 36415; 73130-LT; 80053; 82962; 83036; 83605; 85025; 86140; 87040; 87070; 87077; 87186; 87205; 97165-GO; A9270-GY; J0713; J1815-GY; J3370; J7030; J7040